=== PATIENT | male | born 1940 | race Caucasian/White ===

== ENCOUNTER → 2020-09-09 12:15 | Outpatient (BNVA) | payer MEDICARE, OTHER, SELFPAY | PROVIDERS: PCP Internal Medicine Interventional Cardiology; Referring Provider Internal Medicine Interventional Cardiology; Visit Provider Internal Medicine | DX: I25.10 Atherosclerotic heart disease of native coronary artery without angina pectoris (principal); I48.0 Paroxysmal atrial fibrillation; I10 Essential (primary) hypertension; E78.5 Hyperlipidemia, unspecified; Z95.1 Presence of aortocoronary bypass graft; Z95.3 Presence of xenogenic heart valve | CPT/HCPCS: 99214 ==

== ENCOUNTER → 2020-09-22 08:21 | Outpatient (REF) | payer MEDICARE, OTHER, SELFPAY ==
--- NOTE | 2020-09-22 08:28 | CA_ITS ---
Transthoracic Echocardiogram Patient (Last, First, Middle): Abrahan Odonnell, Gender: Male Date of : 1940 Age: 79 Procedure Date: 09/22/2020 Procedure Type: Transthoracic Echocardiogram Location: OP Height: 177.8 cm Weight: 90.72 kg BSA: 2.09 m2 Heart Rate: bpm BP: 124 / 60 mmHg Circulating Nurse: Referring MD: Jase Hopkins MD Symptoms: Z95.3 - Presence of xenogenic heart valve Study Quality: Fair ECG Rhythm: Sinus Conclusions: - The left ventricular systolic function is normal. The visually estimated ejection fraction is between 60-65%. - The prosthetic aortic valve appears to be functioning normally. - There is moderate mitral annular calcification. There is mild mitral valve regurgitation. Findings Left Ventricle Normal left ventricular cavity size. There is mildly increased left ventricular wall thickness. The left ventricular systolic function is normal. The visually estimated ejection fraction is between 60-65%. There is no evidence of regional wall motion abnormalities. E/E prime ratio is >15, consistent with elevated filling pressures. Evidence suggests grade II (moderate) diastolic dysfunction. Right Ventricle The right ventricle was not well visualized. Normal right ventricular cavity size. Atria The left atrium is normal in size. The right atrium is normal in size. Aortic Valve The prosthetic aortic valve appears to be functioning normally. The aortic valve was not well visualized. There is no aortic valve regurgitation. Mitral Valve There is moderate mitral annular calcification. There is mild mitral valve regurgitation. There is no mitral valve stenosis. Pulmonic Valve The pulmonic valve was not well visualized. Tricuspid Valve Normal tricuspid valve structure. There is mild tricuspid valve regurgitation. The pulmonary artery systolic pressure is normal. Great Vessels The aortic annulus, sinuses of valsalva, and asc aorta are normal in size. Venous The inferior vena cava is normal in size and collapses greater than 50% with inspiration. Pericardium/Pleural There is no evidence of pericardial effusion. Prior Study Comparison Changes noted compared to prior study dated: 06/16/2020. s/p AVR Measurements 2D Linear Measurements IVSd: 1.28 0.6-0.9/0.6-1.0 cm LVIDd: 4.20 3.9-5.3/4.2-5.9 cm LVIDd Index: 2.01 2.4-3.2/2.2-3.1 cm/m2 LVIDs: 2.88 2.0-3.6 cm LVPWd: 1.21 0.7-1.1 cm Ao Root: 2.70 2.1-3.5 cm LA Diam: 5.00 2.7-3.8/3.0-4.0 cm LAIDs Index: 2.39 1.5-2.3 cm/m2 LV Mass: 234.34 67-162/88-224 g LV Mass Index: 112.13 43-95/49-115 g/m2 LVOT Diam: 2.00 3.0+(-)1.3 cm Mitral Valve MV VTI: 0.42 MV Pk Bennett: 1.15 MV Mn Bennett: 0.56 MV Pk Grad: 5.00 MV Mn Grad: 2.00 MV Pk E: 1.31 MV PK A: 1.09 MV Decel Time: 208.00 E/A: 1.20 E'Lateral: 8.80 E'Medial: 4.06 E/E' Med: 32.30 E/E' Lat: 14.90 PHT: 61.00 MVA PHT: 3.61 MVA Continuity: 1.92 Decel [place]: 6.33 Aortic Valve AoV Pk Bennett: 2.40 AoV Mn Bennett: 1.60 AoV VTI: 0.54 AoV Pk Grad: 23.00 Aov Mn Grad: 12.00 TOMMY Cont.VTI: 1.47 LVOT LVOT Pk Bennett: 1.03 LVOT Mn Bennett: 0.71 LVOT VTI: 0.26 LVOT Pk Grad: 4.00 LVOT Mn Grad: 2.00 LVOT Diam: 2.00 LVOT Area: 3.14 Diastolic Function MV Pk E: 1.31 MV Pk A: 1.09 E/A: 1.20 E'Medial: 4.06 E/E' Med: 32.30 E' Laterial: 8.80 E/E' Lat: 14.90 Tricuspid Valve TR Pk Bennett: 2.51 TR Pk Grad: 25.00 Great Vessels Aorta Ao Root-2D: 2.70 2.0-3.7 cm Ao Asc: 3.50 2.1-3.4 cm Pulmonary Valve PV Pk Bennett: 0.95 Peak PV Grad: 4.00 Updated in Other Vendor System with Status of Final Jase Hopkins MD electronically signed on 09/23/2020 8:46:26 AM with status of Final
--- NOTE | 2020-09-22 08:28 | ECG_ITS ---
Hook-up date: 2020-09-22 09:30:00 Duration: 29:09:00 Test Indications: PAF Medications: 47031 QRS complexes 223 Ventricular ectopics which represent <1 % of total QRS comp. 32 Supraventricular ectopics which represent <1 % of total QRS comp. * Paced QRS complexs which represent % of total QRS comp. VENTRICULAR ECTOPY 217 Isolated 0 Bigeminal Cycles 5 Couplets 0 Runs 0 Beats in Runs * Beats LONGEST at * BPM at :: -- * Beats FASTEST at * BPM at :: -- SUPRAVENTRICULAR ECTOPY 30 Isolated 1 Couplets 0 Runs 0 Beats in Runs * Beats LONGEST at * BPM at :: -- * Beats FASTEST at * BPM at :: -- HEART RATES 47 MIN at 03:21:05 2020-09-23 68 AVG 113 MAX at 07:09:57 2020-09-23 LONGEST RR 1.3040 secs at 03:41:00 2020-09-23 S-T LEVELS Channel 1 - 128 mm at 09:30:00 2020-09-22 - 128 mm at 09:30:00 2020-09-22 Channel 2 - 128 mm at 09:30:00 2020-09-22 - 128 mm at 09:30:00 2020-09-22 Channel 3 - 128 mm at 09:30:00 2020-09-22 - 128 mm at 09:30:00 Underlying rhythm is sinus; Average ventricular rate 68/min; range 47-113/min; Rare supraventricular and ventricular ectopy; No sustained arrhythmias; Patient did not report any symptoms in the diary Referred By: Flako Lang Overread By: FLAKO LANG
== END ==
LOC: HO.CARD 08:21
PROVIDERS: Visit Provider Internal Medicine
DX: Z95.3 Presence of xenogenic heart valve (principal); I48.0 Paroxysmal atrial fibrillation
CPT/HCPCS: 93225; 93226; 93306

== ENCOUNTER → 2020-11-09 08:12 | Outpatient (BNVA) | payer MEDICARE, OTHER, SELFPAY | PROVIDERS: PCP Internal Medicine Interventional Cardiology; Visit Provider Internal Medicine | DX: I25.10 Atherosclerotic heart disease of native coronary artery without angina pectoris (principal); I48.0 Paroxysmal atrial fibrillation; I10 Essential (primary) hypertension; E78.5 Hyperlipidemia, unspecified; Z95.1 Presence of aortocoronary bypass graft; Z95.3 Presence of xenogenic heart valve | CPT/HCPCS: 99212 ==

== ENCOUNTER → 2021-01-25 08:48 | Outpatient (BNVA) | payer MEDICARE, OTHER, SELFPAY | PROVIDERS: PCP Internal Medicine Interventional Cardiology; Visit Provider Internal Medicine ==

== ENCOUNTER → 2021-01-25 10:38 | Outpatient (REF) | payer MEDICARE, OTHER, SELFPAY ==
--- NOTE | 2021-01-27 10:59 | ECG_ITS ---
Hook-up date: 2021-01-25 10:04:00 Duration: 47:59:00 Test Indications: PAF Medications: 06108 QRS complexes 12 Ventricular ectopics which represent <1 % of total QRS comp. 4 Supraventricular ectopics which represent <1 % of total QRS comp. * Paced QRS complexs which represent % of total QRS comp. VENTRICULAR ECTOPY 12 Isolated 0 Bigeminal Cycles 0 Couplets 0 Runs 0 Beats in Runs * Beats LONGEST at * BPM at :: -- * Beats FASTEST at * BPM at :: -- SUPRAVENTRICULAR ECTOPY 2 Isolated 1 Couplets 0 Runs 0 Beats in Runs * Beats LONGEST at * BPM at :: -- * Beats FASTEST at * BPM at :: -- HEART RATES 46 MIN at 05:10:30 2021-01-26 69 AVG 119 MAX at 10:09:17 2021-01-25 LONGEST RR 1.3840 secs at 05:09:27 2021-01-26 S-T LEVELS Channel 1 - 128 mm at 10:04:00 2021-01-25 - 128 mm at 10:04:00 2021-01-25 Channel 2 - 128 mm at 10:04:00 2021-01-25 - 128 mm at 10:04:00 2021-01-25 Channel 3 - 128 mm at 02:92:31 -- - 128 mm at 02:92:31 Basic rhythm Normal sinus rhythm No long pause or profound bradycardia Rare Premature ventricular complexes No sustained Atrial fibrillation No diary submitted Referred By: Jase Hopkins Overread By: BONIFACIO WYLIE MD
== END ==
LOC: HO.CARD 10:38
PROVIDERS: Visit Provider Internal Medicine
DX: I48.0 Paroxysmal atrial fibrillation (principal); I49.3 Ventricular premature depolarization
CPT/HCPCS: 93226

== ENCOUNTER → 2021-04-06 08:05 | Outpatient (BNVA) | payer MEDICARE, OTHER, SELFPAY | PROVIDERS: PCP Internal Medicine Interventional Cardiology; Visit Provider Internal Medicine | DX: I25.10 Atherosclerotic heart disease of native coronary artery without angina pectoris (principal); I48.0 Paroxysmal atrial fibrillation; I10 Essential (primary) hypertension; Z95.1 Presence of aortocoronary bypass graft; Z95.3 Presence of xenogenic heart valve | CPT/HCPCS: 99212 ==

== ENCOUNTER → 2021-06-30 13:42 | Outpatient (BNVA) | payer MEDICARE, OTHER, SELFPAY | PROVIDERS: PCP Internal Medicine Interventional Cardiology; Visit Provider Internal Medicine | DX: Z01.810 Encounter for preprocedural cardiovascular examination (principal); I25.10 Atherosclerotic heart disease of native coronary artery without angina pectoris; I48.0 Paroxysmal atrial fibrillation; I10 Essential (primary) hypertension; Z95.1 Presence of aortocoronary bypass graft; Z95.3 Presence of xenogenic heart valve | CPT/HCPCS: 93005; 99212 ==

== ENCOUNTER 2021-10-06 06:29 | Outpatient (REF) | payer MEDICARE, OTHER, SELFPAY ==
[2021-10-06 08:26] LABS: Cholesterol 186 mg/dL; HDL Cholesterol 57 mg/dL; LDL Cholesterol Calculated 112 mg/dl; Triglycerides 89 mg/dL
== END 2021-10-06 06:30 | disposition home or self-care (01) ==
LOC: HO.LAB 06:29
PROVIDERS: PCP Internal Medicine Interventional Cardiology; Visit Provider Internal Medicine
DX: I25.10 Atherosclerotic heart disease of native coronary artery without angina pectoris (principal)
CPT/HCPCS: 36415; 80061

== ENCOUNTER → 2021-10-13 08:05 | Outpatient (BNVA) | payer MEDICARE, OTHER, SELFPAY | PROVIDERS: PCP Nurse Practitioner Family; Referring Provider Nurse Practitioner Family; Visit Provider Internal Medicine | DX: I25.10 Atherosclerotic heart disease of native coronary artery without angina pectoris (principal); I48.0 Paroxysmal atrial fibrillation; I10 Essential (primary) hypertension; Z95.1 Presence of aortocoronary bypass graft; Z95.3 Presence of xenogenic heart valve | CPT/HCPCS: 99212 ==

== ENCOUNTER 2021-10-25 06:35 | Outpatient (REF) | payer MEDICARE, OTHER, SELFPAY ==
[2021-10-25 12:13] LABS: Cholesterol 162 mg/dL; HDL Cholesterol 40 mg/dL; LDL Cholesterol Calculated 87 mg/dl; Triglycerides 176 mg/dL
[2021-10-25 12:23] LABS: Alanine Aminotransferase 26 U/L (0-40); Albumin Level 4.3 g/dL (3.5-5.0); Alkaline Phosphatase 82 U/L (39-117); Anion Gap 18 (12-20); Aspartate Amino Transferase 42 U/L (5-37); Bilirubin Direct 0.3 mg/dL (0.0-0.5); Bilirubin Total 0.6 mg/dL (0.0-1.0); Blood Urea Nitrogen 24 mg/dL (9-16); Calcium 9.3 mg/dL (8.4-10.2); Carbon Dioxide 23 mmol/L (22-29); Chloride 105 mmol/L (96-108); Cholesterol 167 mg/dL; Estimated Glomerular Filt Rate > 60; Glucose Fasting 91 mg/dL (60-99); HDL Cholesterol 41 mg/dL; LDL Cholesterol Calculated 91 mg/dl; Potassium 4.9 mmol/L (3.3-5.1); Sodium 141 mmol/L (135-145); Total Protein 7.1 g/dL (6.5-8.0); Triglycerides 176 mg/dL
[2021-10-25 12:25] LABS: Prostate Specific Antigen Scr 1.19 ng/mL (<0.05-4.0); TSH reflex Free T4 1.49 uIU/mL (0.32-4.0)
== END 2021-10-25 06:36 | disposition home or self-care (01) ==
LOC: HO.HMGCLDS 06:35
PROVIDERS: Absent Provider Internal Medicine; PCP Nurse Practitioner Family; Visit Provider Nurse Practitioner Family
DX: Z12.5 Encounter for screening for malignant neoplasm of prostate (principal); F41.9 Anxiety disorder, unspecified; I10 Essential (primary) hypertension; E78.5 Hyperlipidemia, unspecified
CPT/HCPCS: 36415; 80053; 80061; 80076; 82248; 84153; 84443

== ENCOUNTER 2021-10-26 06:23 | Outpatient (REF) | payer MEDICARE, OTHER, SELFPAY ==
[2021-10-26 11:47] LABS: Appearance Urine HAZY; Color Urine YELLOW; Glucose Urine UA NEG (NEG); Leukocyte Esterase Urine 1+ (NEG); Nitrite Urine POS (NEG); UACC Culture Trigger YES; Urine Blood NEG (NEG); Urine Ketones NEG (NEG); Urine Protein NEG (NEG-TRACE)
[2021-10-26 12:28] LABS: Bacteria Urine 1+ /LPF
[2021-10-26 12:29] LABS: Mucus Urine TRACE /LPF; RBC Urine 0 /HPF (0); Squamous Epithelial Cell Urine TRACE /LPF
== END 2021-10-26 06:24 | disposition home or self-care (01) ==
LOC: HO.HMGCLNP 06:23
PROVIDERS: Visit Provider Nurse Practitioner Family
DX: I10 Essential (primary) hypertension (principal); F41.9 Anxiety disorder, unspecified
CPT/HCPCS: 81001; 81003; 87086; 87088; 87186

== ENCOUNTER → 2022-04-21 08:59 | Outpatient (BNVA) | payer MEDICARE, OTHER, SELFPAY | PROVIDERS: PCP Nurse Practitioner Family; Referring Provider Nurse Practitioner Family; Visit Provider Internal Medicine | DX: I25.10 Atherosclerotic heart disease of native coronary artery without angina pectoris (principal); I48.0 Paroxysmal atrial fibrillation; I10 Essential (primary) hypertension; Z95.1 Presence of aortocoronary bypass graft; Z95.3 Presence of xenogenic heart valve; Z79.899 Other long term (current) drug therapy | CPT/HCPCS: 93005; 99212 ==

== ENCOUNTER 2022-05-24 06:01 | Outpatient (REF) | payer MEDICARE, OTHER, SELFPAY ==
[2022-05-24 11:42] LABS: MANUAL DIFF FLAG NO
[2022-05-24 12:02] LABS: Basophils Percent Auto 0.6 % (0-2); Eosinophils Absolute Auto 0.1 X10*3/uL (0.0-0.4); Eosinophils Percent Auto 0.9 % (0-4); Hematocrit 35.8 % (42.0-52.0); Hemoglobin 12.1 g/dl (14.0-18.0); Imm Gran Abs Auto 0.02 X10*3/uL (0.00-0.03); Imm Gran Pct Auto 0.4 % (0.0-0.4); Lymphocytes Absolute Auto 1.7 X10*3/uL (1.2-4.9); Lymphocytes Percent Auto 32.3 % (20-40); Mean Corpuscular HGB Conc 33.8 g/dl (31.0-36.0); Mean Corpuscular Hemoglobin 33.9 pg (27.0-33.0); Mean Corpuscular Volume 100.3 fL (80.0-98.0); Mean Platelet Volume 10.6 fL (9.4-12.4); Monocytes Absolute Auto 0.6 X10*3/uL (0.1-1.2); Monocytes Percent Auto 10.5 % (2-11); Neutrophils Percent Auto 55.3 % (45-73); Platelet Count 195 X10*3/uL (160-400); Red Blood Count 3.57 X10*6/uL (4.60-5.80); Red Cell Distribution Width 13.9 % (11.0-16.0); White Blood Count 5.3 X10*3/uL (4.8-10.8)
[2022-05-24 12:08] LABS: Appearance Urine CLEAR; Color Urine YELLOW; Glucose Urine UA NEG (NEG); Leukocyte Esterase Urine NEG (NEG); Nitrite Urine NEG (NEG); Urine Blood NEG (NEG); Urine Ketones NEG (NEG); Urine Protein TRACE MG/DL (NEG-TRACE)
[2022-05-24 12:16] LABS: Alanine Aminotransferase 26 U/L (0-40); Albumin Level 4.5 g/dL (3.5-5.0); Alkaline Phosphatase 77 U/L (39-117); Anion Gap 14 (12-20); Aspartate Amino Transferase 36 U/L (5-37); Bilirubin Total 0.9 mg/dL (0.0-1.0); Blood Urea Nitrogen 25 mg/dL (9-16); Calcium 8.8 mg/dL (8.4-10.2); Carbon Dioxide 21 mmol/L (22-29); Chloride 108 mmol/L (96-108); Cholesterol 158 mg/dL; Estimated Glomerular Filt Rate > 60; Glucose Fasting 115 mg/dL (60-99); HDL Cholesterol 46 mg/dL; Iron 102 mcg/dL (45-160); LDL Cholesterol Calculated 96 mg/dl; Percent Iron Saturation 30 % (15-50); Potassium 4.6 mmol/L (3.3-5.1); Sodium 138 mmol/L (135-145); Total Iron Binding Capacity 342 mcg/dL (228-428); Triglycerides 82 mg/dL; Unsaturated Iron Binding 240 ug/dL
[2022-05-24 12:26] LABS: Ferritin 206 ng/mL (20-250); TSH reflex Free T4 1.97 uIU/mL (0.32-4.0)
[2022-05-24 12:50] LABS: Vitamin B12 212 pg/mL (200-900)
== END 2022-05-24 06:02 | disposition home or self-care (01) ==
LOC: HO.HMGCLDS 06:01
PROVIDERS: Visit Provider Nurse Practitioner Family
DX: I10 Essential (primary) hypertension (principal); G25.81 Restless legs syndrome
CPT/HCPCS: 36415; 80053; 80061; 81003; 82607; 82728; 83540; 84443; 85025

== ENCOUNTER → 2022-10-12 08:02 | Outpatient (BNVA) | payer MEDICARE, OTHER, SELFPAY | PROVIDERS: PCP Nurse Practitioner Family; Referring Provider Nurse Practitioner Family; Visit Provider Internal Medicine | DX: I25.10 Atherosclerotic heart disease of native coronary artery without angina pectoris (principal); I48.0 Paroxysmal atrial fibrillation; I10 Essential (primary) hypertension; Z95.1 Presence of aortocoronary bypass graft; Z95.3 Presence of xenogenic heart valve | CPT/HCPCS: 93005; 99212 ==

== ENCOUNTER 2022-11-15 06:01 | Outpatient (REF) | payer MEDICARE, OTHER, SELFPAY ==
[2022-11-15 11:28] LABS: MANUAL DIFF FLAG NO
[2022-11-15 11:38] LABS: Basophils Percent Auto 0.3 % (0-2); Eosinophils Percent Auto 0.7 % (0-4); Hematocrit 36.9 % (42.0-52.0); Hemoglobin 12.4 g/dl (14.0-18.0); Imm Gran Abs Auto 0.01 X10*3/uL (0.00-0.03); Imm Gran Pct Auto 0.2 % (0.0-0.4); Lymphocytes Absolute Auto 1.8 X10*3/uL (1.2-4.9); Mean Corpuscular HGB Conc 33.6 g/dl (31.0-36.0); Mean Corpuscular Hemoglobin 32.7 pg (27.0-33.0); Mean Corpuscular Volume 97.4 fL (80.0-98.0); Mean Platelet Volume 10.7 fL (9.4-12.4); Monocytes Absolute Auto 0.6 X10*3/uL (0.1-1.2); Monocytes Percent Auto 9.3 % (2-11); Neutrophils Absolute Auto 3.6 x10*3/uL (2.0-8.3); Neutrophils Percent Auto 59.5 % (45-73); Platelet Count 185 X10*3/uL (160-400); Red Blood Count 3.79 X10*6/uL (4.60-5.80); Red Cell Distribution Width 14.5 % (11.0-16.0)
[2022-11-15 15:37] LABS: Folate 10.8 ng/mL (> or = 4.0); Vitamin B12 612 pg/mL (200-900)
[2022-11-19 00:04] LABS: Intrinsic Factor Antibodies Negative (Negative)
[2022-11-23 12:47] LABS: Parietal Cell Antibody <=20.0 Unit (<=20.0)
== END 2022-11-15 06:02 | disposition home or self-care (01) ==
LOC: HO.HMGCLDS 06:01
PROVIDERS: PCP Nurse Practitioner Family; Visit Provider Nurse Practitioner Family
DX: D64.9 Anemia, unspecified (principal)
CPT/HCPCS: 36415; 82607; 82746; 83516; 85025; 86340

== ENCOUNTER 2023-01-23 06:04 | Outpatient (REF) | payer MEDICARE, OTHER, SELFPAY ==
[2023-01-23 11:57] LABS: MANUAL DIFF FLAG NO
[2023-01-23 12:02] LABS: Appearance Urine Clear; Color Urine Yellow; Glucose Urine UA Negative (Negative); Leukocyte Esterase Urine Negative (Negative); Nitrite Urine Negative (Negative); Specific Gravity - Urine 1.015 (1.005-1.025); UMIC TRIGGER UACC YES; Urine Blood Negative (Negative); Urine Ketones Negative (Negative); Urine Protein 30 (1+) mg/dL (Neg-Trace)
[2023-01-23 12:08] LABS: Bacteria Urine None Seen (None Seen); Basophils Percent Auto 0.5 % (0-2); Eosinophils Absolute Auto 0.1 X10*3/uL (0.0-0.4); Eosinophils Percent Auto 0.9 % (0-4); Hematocrit 36.6 % (42.0-52.0); Hemoglobin 12.4 g/dl (14.0-18.0); Imm Gran Abs Auto 0.02 X10*3/uL (0.00-0.03); Imm Gran Pct Auto 0.3 % (0.0-0.4); Lymphocytes Absolute Auto 1.7 X10*3/uL (1.2-4.9); Lymphocytes Percent Auto 29.3 % (20-40); Mean Corpuscular HGB Conc 33.9 g/dl (31.0-36.0); Mean Corpuscular Hemoglobin 33.3 pg (27.0-33.0); Mean Corpuscular Volume 98.4 fL (80.0-98.0); Mean Platelet Volume 10.5 fL (9.4-12.4); Monocytes Absolute Auto 0.7 X10*3/uL (0.1-1.2); Monocytes Percent Auto 12.8 % (2-11); Neutrophils Absolute Auto 3.2 x10*3/uL (2.0-8.3); Neutrophils Percent Auto 56.2 % (45-73); Platelet Count 188 X10*3/uL (160-400); RBC Urine 0-2 /HPF (0-2); Red Blood Count 3.72 X10*6/uL (4.60-5.80); Red Cell Distribution Width 13.7 % (11.0-16.0); Squamous Epithelial Cell Urine 0-2 /HPF (0-2); WBC Urine 0-5 /HPF (0-5); White Blood Count 5.8 X10*3/uL (4.8-10.8)
[2023-01-23 12:38] LABS: Alanine Aminotransferase 33 U/L (0-40); Albumin Level 4.4 g/dL (3.5-5.0); Alkaline Phosphatase 77 U/L (39-117); Anion Gap 17 (12-20); Aspartate Amino Transferase 46 U/L (5-37); Bilirubin Total 0.6 mg/dL (0.0-1.0); Blood Urea Nitrogen 27 mg/dL (9-16); Carbon Dioxide 22 mmol/L (22-29); Chloride 106 mmol/L (96-108); Cholesterol 145 mg/dL; Estimated Glomerular Filt Rate > 60; Glucose Fasting 85 mg/dL (60-99); HDL Cholesterol 42 mg/dL; LDL Cholesterol Calculated 86 mg/dl; Potassium 4.7 mmol/L (3.3-5.1); Sodium 140 mmol/L (135-145); Triglycerides 89 mg/dL
[2023-01-23 12:56] LABS: Prostate Specific Antigen Scr 1.59 ng/mL (<0.05-4.0); TSH reflex Free T4 1.58 uIU/mL (0.32-4.0)
== END 2023-01-23 06:05 | disposition home or self-care (01) ==
LOC: HO.HMGCLDS 06:04
PROVIDERS: PCP Nurse Practitioner Family; Visit Provider Nurse Practitioner Family
DX: E78.5 Hyperlipidemia, unspecified (principal); D64.9 Anemia, unspecified; Z12.5 Encounter for screening for malignant neoplasm of prostate
CPT/HCPCS: 36415; 80053; 80061; 81001; 81003; 84153; 84443; 85025

== ENCOUNTER 2023-02-23 06:00 | Outpatient (REF) | payer MEDICARE, OTHER, SELFPAY ==
[2023-02-23 11:12] LABS: MANUAL DIFF FLAG NO
[2023-02-23 11:20] LABS: Basophils Percent Auto 0.4 % (0-2); Eosinophils Absolute Auto 0.1 X10*3/uL (0.0-0.4); Eosinophils Percent Auto 0.8 % (0-4); Hematocrit 38.6 % (42.0-52.0); Hemoglobin 12.8 g/dl (14.0-18.0); Imm Gran Abs Auto 0.02 X10*3/uL (0.00-0.03); Imm Gran Pct Auto 0.3 % (0.0-0.4); Immature Retic Fraction 14.8 % (2.3-13.4); Lymphocytes Absolute Auto 2.4 X10*3/uL (1.2-4.9); Lymphocytes Percent Auto 32.4 % (20-40); Mean Corpuscular HGB Conc 33.2 g/dl (31.0-36.0); Mean Corpuscular Hemoglobin 33.1 pg (27.0-33.0); Mean Corpuscular Volume 99.7 fL (80.0-98.0); Mean Platelet Volume 11.7 fL (9.4-12.4); Monocytes Absolute Auto 0.7 X10*3/uL (0.1-1.2); Monocytes Percent Auto 9.1 % (2-11); Neutrophils Absolute Auto 4.2 x10*3/uL (2.0-8.3); Platelet Count 186 X10*3/uL (160-400); Red Blood Count 3.87 X10*6/uL (4.60-5.80); Red Cell Distribution Width 13.5 % (11.0-16.0); Retic HGB Equivalent 35.4 pg (30.0-35.0); Reticulocyte Percent 1.2 % (0.5-1.8); Reticulocytes Absolute 0.048 X10*6/uL (0.026-0.095); White Blood Count 7.4 X10*3/uL (4.8-10.8)
[2023-02-23 12:00] LABS: Iron 59 mcg/dL (45-160); Percent Iron Saturation 20 % (15-50); Total Iron Binding Capacity 299 mcg/dL (228-428); Unsaturated Iron Binding 240 ug/dL
[2023-02-23 12:16] LABS: Ferritin 159 ng/mL (20-250); Folate 9.9 ng/mL (> or = 4.0); Vitamin B12 744 pg/mL (200-900)
== END 2023-02-23 06:01 | disposition home or self-care (01) ==
LOC: HO.HMGCLDS 06:00
PROVIDERS: PCP Nurse Practitioner Family; Visit Provider Nurse Practitioner Family
DX: D64.9 Anemia, unspecified (principal)
CPT/HCPCS: 36415; 82607; 82728; 82746; 83540; 85025; 85045

== ENCOUNTER 2023-03-03 | Outpatient (REF) | payer MEDICARE, OTHER, SELFPAY ==
[2023-03-07 07:39] LABS: FIT Int Ctl YES; FIT1 NEGATIVE (NEGATIVE); FIT2 POSITIVE (NEGATIVE)
== END 2023-03-03 00:01 | disposition home or self-care (01) ==
LOC: HO.LNP
PROVIDERS: Visit Provider Nurse Practitioner Family
DX: D64.9 Anemia, unspecified (principal)
CPT/HCPCS: 82274

== ENCOUNTER → 2023-05-03 09:13 | Outpatient (BNVA) | payer MEDICARE, OTHER, SELFPAY | PROVIDERS: PCP Nurse Practitioner Family; Visit Provider Nurse Practitioner ==

== ENCOUNTER → 2023-05-04 08:00 | Outpatient (BNVA) | payer MEDICARE, OTHER, SELFPAY | PROVIDERS: PCP Nurse Practitioner Family; Visit Provider Nurse Practitioner | DX: Z01.818 Encounter for other preprocedural examination (principal); D64.9 Anemia, unspecified; R19.5 Other fecal abnormalities | CPT/HCPCS: 99202 ==

== ENCOUNTER 2023-09-18 06:02 | Outpatient (REF) | payer MEDICARE, OTHER, SELFPAY ==
[2023-09-18 11:40] LABS: Appearance Urine Clear; Color Urine Yellow; Glucose Urine UA Negative (Negative); Leukocyte Esterase Urine Negative (Negative); Nitrite Urine Negative (Negative); PH 6.5 (5.0-9.0); Specific Gravity - Urine 1.015 (1.005-1.025); Urine Blood Negative (Negative); Urine Ketones Negative (Negative); Urine Protein Trace mg/dL (Neg-Trace)
[2023-09-18 11:44] LABS: MANUAL DIFF FLAG NO
[2023-09-18 12:15] LABS: Alanine Aminotransferase 25 U/L (0-40); Albumin Level 4.4 g/dL (3.5-5.0); Alkaline Phosphatase 66 U/L (39-117); Anion Gap 15 (12-20); Aspartate Amino Transferase 31 U/L (5-37); Bilirubin Total 0.8 mg/dL (0.0-1.0); Blood Urea Nitrogen 18 mg/dL (9-16); Calcium 9.6 mg/dL (8.4-10.2); Carbon Dioxide 23 mmol/L (22-29); Chloride 107 mmol/L (96-108); Cholesterol 133 mg/dL (<200); Estimated Glomerular Filt Rate > 60; Glucose Fasting 100 mg/dL (60-99); HDL Cholesterol 44 mg/dL (>40); Iron 96 mcg/dL (45-160); LDL Cholesterol Calculated 75 mg/dL (<100); Percent Iron Saturation 28 % (15-50); Potassium 4.5 mmol/L (3.3-5.1); Sodium 140 mmol/L (135-145); Total Iron Binding Capacity 337 mcg/dL (228-428); Total Protein 7.4 g/dL (6.5-8.0); Triglycerides 72 mg/dL (<150); Unsaturated Iron Binding 241 ug/dL
[2023-09-18 12:22] LABS: Ferritin 76 ng/mL (20-250)
[2023-09-18 12:23] LABS: Basophils Percent Auto 0.5 % (0-2); Eosinophils Absolute Auto 0.1 X10*3/uL (0.0-0.4); Eosinophils Percent Auto 0.8 % (0-4); Hematocrit 37.8 % (42.0-52.0); Hemoglobin 12.5 g/dl (14.0-18.0); Imm Gran Abs Auto 0.02 X10*3/uL (0.00-0.03); Imm Gran Pct Auto 0.3 % (0.0-0.4); Lymphocytes Absolute Auto 2.1 X10*3/uL (1.2-4.9); Lymphocytes Percent Auto 34.8 % (20-40); Mean Corpuscular HGB Conc 33.1 g/dl (31.0-36.0); Mean Corpuscular Hemoglobin 33.1 pg (27.0-33.0); Mean Platelet Volume 10.5 fL (9.4-12.4); Monocytes Absolute Auto 0.6 X10*3/uL (0.1-1.2); Monocytes Percent Auto 9.5 % (2-11); Neutrophils Absolute Auto 3.2 x10*3/uL (2.0-8.3); Neutrophils Percent Auto 54.1 % (45-73); Platelet Count 224 X10*3/uL (160-400); Red Blood Count 3.78 X10*6/uL (4.60-5.80); Red Cell Distribution Width 13.8 % (11.0-16.0)
[2023-09-18 12:42] LABS: Folate 12.8 ng/mL (> or = 4.0); Vitamin B12 509 pg/mL (200-900)
== END 2023-09-18 06:03 | disposition home or self-care (01) ==
LOC: HO.HMGCLDS 06:02
PROVIDERS: PCP Nurse Practitioner Family; Visit Provider Nurse Practitioner Family
DX: I10 Essential (primary) hypertension (principal); E78.5 Hyperlipidemia, unspecified; D64.9 Anemia, unspecified
CPT/HCPCS: 36415; 80053; 80061; 81003; 82607; 82728; 82746; 83540; 84443; 85025

== ENCOUNTER 2023-10-25 08:09 | Outpatient (AMB) | payer MEDICARE, OTHER, SELFPAY ==
--- NOTE | 2023-10-25 08:19 | A.OFFVIS_ITS ---
Intake Vital Signs 10/25/23 08:25 Height 5 ft 10 in Weight 216 lb 0.848 oz BMI 31.0 BP 136/86 Blood Pressure Location Lt brachial Position Sitting Pulse 67 Intake Visit Reasons: 1 year follow up Intake Note: 1 year follow up w/ EKG Supervisor Filling And Packing Required: No Accompanied by: Self / Same As Patient Allergies No Known Allergies Allergy (Verified 10/25/23 08:29) Medication List - Last Reconciled 10/25/23 by Jase Hopkins MD aspirin 81 mg PO DAILY atorvastatin 80 mg PO DAILY 90 days dorzolamide-timolol 22.3-6.8 mg/mL 1 drp ophthalmic (eye) BID lisinopril 10 mg PO DAILY metoprolol tartrate 50 mg PO BID 90 days HPI HPI Comments History of Present Illness Details Abrahan returns for follow-up. He has undergone coronary artery bypass surgery as well as bioprosthetic aortic valve replacement. Overall, he is doing good. No complaints from cardiac standpoint. [facility] Medical History Atherosclerotic cardiovascular disease Constipation Dyslipidemia Essential hypertension Hyperlipidemia, unspecified PAF (paroxysmal atrial fibrillation) Surgical History H/O colonoscopy Status post aortic valve replacement with bioprosthetic valve Status post aorto-coronary artery bypass graft History of coronary artery bypass graft x 2 (~07/29/20) History of cardiac catheterization (~07/03/20) Family History Father No problems noted. Mother No problems noted. [facility] Tobacco Use Status: Former Tobacco user Years Smoked: 1959 e-Cigarette/Vaping Use: Never Used Second Hand Smoke Exposure: No service: Yes Current occupational status: retired Cognitive needs: No Hearing needs: No Vision needs: Yes Review of Systems Const Denies weakness ENT Denies dizziness Card Denies chest pain, Denies chest pain with activity, Denies syncope, Denies rapid heart rate, Denies pedal edema, Denies edema, Denies leg edema, Denies lightheadedness, Denies palpitations, Denies dyspnea, Denies dyspnea on exertion and Denies orthopnea Resp Denies cough, Denies dyspnea and Denies dyspnea on exertion GI Denies hematochezia and Denies change in stool character Musc Denies abnormal gait, Denies muscle cramps, Denies muscle weakness, Denies numbness, Denies radiating pain into limb and Denies tingling Neuro Denies abnormal gait, Denies dizziness, Denies syncope, Denies numbness, Denies tingling and Denies weakness Endo Denies palpitations Physical Exam Vital Signs: Last Vital Signs Pulse 67 10/25/23 08:25 BP 136/86 10/25/23 08:25 BMI result Body Mass Index 31.0 Const General: comfortable and no acute distress Orientation/consciousness: patient oriented x3 HEENT Other: Unremarkable Head: Yes normal to inspection Neck Neck: Yes normal visual inspection Chest Chest palpation & inspection: normal inspection of the chest Resp Auscultation: clear to auscultation bilaterally Cardio Palpation: normal PMI Heart sounds: S1 normal heart sound present, S2 normal heart sound present, no gallops, Murmur heart sound present systolic early, I/ and at the right sternal border and no rubs GI Palpation (GI): Soft to palpation Back/Spine/Pelvis Other: unremarkable Skin General skin exam: no rashes or lesions noted Neuro General: patient oriented x3 Extrem General: Yes normal to inspection Psych Mental Status: mental status grossly normal Office Procedures EKG Details: EKG with sinus rhythm at 67/Min; no significant ST-T changes and otherwise [place]remarkable[place] [id number], Complete Assessment & Plan Assessment & Plan (1) Atherosclerotic cardiovascular disease: Code(s): I25.10 - Atherosclerotic heart disease of [place] coronary artery without angina pectoris Plan: Stable and angina free. Continue aspirin, beta-blockers and statins. (2) Status post aorto-coronary artery bypass graft: Code(s): Z95.1 - Presence of aortocoronary bypass graft Plan: Recovered completely. (3) Status post aortic valve replacement with bioprosthetic valve: Code(s): Z95.3 - Presence of xenogenic heart valve Plan: Last echocardiogram shows normally functioning prosthetic aortic valve. Continue aspirin. Infective endocarditis prophylaxis as needed. We will recheck echocardiogram before next visit. (4) PAF (paroxysmal atrial fibrillation): Code(s): I48.0 - Paroxysmal atrial fibrillation Plan: No evidence of recurrent atrial fibrillation. Off Eliquis. (5) Essential hypertension: Code(s): I10 - Essential (primary) hypertension Plan: Stable. Home blood pressures apparently much lower than here. No changes. Orders: Orders CA echo transthoracic complete 51 Weeks Z95.3 - Presence of xenogenic heart valve Coding Level of Care Code Est Pt Level 4 (36239) Diagnoses Atherosclerotic cardiovascular disease I25.10 Status post aorto-coronary artery bypass graft Z95.1 Status post aortic valve replacement with bioprosthetic valve Z95.3 PAF (paroxysmal atrial fibrillation) I48.0 Essential hypertension I10 CPT Codes EKG - CPT: 71519-[id number], Complete ([id number])
[2023-10-25 08:25] VITALS: BP 136/86; PULSE 67; BMI 31.0
== END 2023-10-25 08:38 | disposition home or self-care (01) ==
PROVIDERS: Visit Provider Internal Medicine
DX: I25.10 Atherosclerotic heart disease of native coronary artery without angina pectoris (principal); Z95.1 Presence of aortocoronary bypass graft; Z95.3 Presence of xenogenic heart valve; I48.0 Paroxysmal atrial fibrillation; I10 Essential (primary) hypertension
CPT/HCPCS: 93010; 99214

== ENCOUNTER → 2023-10-25 08:09 | Outpatient (BNVA) | payer MEDICARE, OTHER, SELFPAY | PROVIDERS: Visit Provider Internal Medicine | DX: I25.10 Atherosclerotic heart disease of native coronary artery without angina pectoris (principal); I10 Essential (primary) hypertension; I48.0 Paroxysmal atrial fibrillation; Z95.1 Presence of aortocoronary bypass graft; Z95.3 Presence of xenogenic heart valve | CPT/HCPCS: 93005; 99212 ==

== ENCOUNTER 2023-11-16 08:45 | Day surgery (SDC) | payer MEDICARE, OTHER, SELFPAY ==
[2023-11-14 13:03] VITALS: BMI 31.0
--- NOTE | 2023-11-15 09:45 | P.CONAN_ITS ---
Documented by User: Gudelia Feliz NP 11/15/23 09:56 HPI - Anesthesia Eval Consult details Narrative: 82yo M for Upper Endoscopy and Colonoscopy Follows [facility] cardiology. Last office visit 10/25/23, stable PAF - no recurrent episodes, off OAC except aspirin s/p AVR s/p CABG PMFSH Active Problems Active Problems: All Active Problems (Updated 05/10/23 @ 10:28 by PETER Feliz) Pre-op examination (Acute) Positive FIT (fecal immunochemical test) (Acute) Anemia (Acute) Restless leg (Acute) Screening PSA (prostate specific antigen) (Acute) Anxiety (Acute) Preoperative cardiovascular examination (Acute) PAF (paroxysmal atrial fibrillation) (Acute) Hyperlipidemia, unspecified (Acute) Essential hypertension (Acute) Status post aortic valve replacement with bioprosthetic valve (Acute) Status post aorto-coronary artery bypass graft (Acute) Atherosclerotic cardiovascular disease (Acute) Past Medical History Medical History Atherosclerotic cardiovascular disease Constipation Dyslipidemia Essential hypertension Hyperlipidemia, unspecified PAF (paroxysmal atrial fibrillation) Family History Family History Father No problems noted. Mother No problems noted. Surgical History Surgical History H/O colonoscopy Status post aortic valve replacement with bioprosthetic valve Status post aorto-coronary artery bypass graft History of coronary artery bypass graft x 2 (~07/29/20) History of cardiac catheterization (~07/03/20) Social History Social History Housing: Condominium Patient Tobacco Use Status: Former Tobacco user Years Smoked: 1959 e-Cigarette/Vaping Use: Never Used Second Hand Smoke Exposure: No Advance Directives: No Advance Directives Information Provided: Yes service: Yes Current occupational status: retired Cognitive needs: No Hearing needs: No Vision needs: Yes Meds Allergies Allergy/AdvReac Type Severity Reaction Status Date / Time No Known Allergies Allergy Verified 11/16/23 09:14 Home Medications Medication Instructions Recorded Confirmed Last Taken Type aspirin 81 mg tablet,delayed 81 mg PO DAILY 09/09/20 11/16/23 11/15/23 History release dorzolamide 22.3 mg-timolol 6.8 1 drp ophthalmic (eye) BID 09/09/20 11/16/23 Unknown History mg/mL eye drops Exam Height,Weight and Vital Signs: Height 5 ft 10 in Weight 97.976 kg Pertinent Lab Results Pertinent Lab Results: Laboratory Tests 09/18/23 06:17 WBC 6.0 Hgb 12.5 L Hct 37.8 L Plt Count 224 Sodium 140 Potassium 4.5 Chloride 107 Carbon Dioxide 23 BUN 18 H Creatinine 0.76 Narrative Narrative: ECHO 09/2023 Conclusions: - The left ventricular systolic function is normal. The visually estimated ejection fraction is between 60-65%. - The prosthetic aortic valve appears to be functioning normally. - There is moderate mitral annular calcification. There is mild mitral valve regurgitation. Assessment and Plan Assessment Anesthesia Assessment: Chart Reviewed Documented by User: Dustin Sorensen MD 11/16/23 09:23 [facility] Past Medical History Medical History Atherosclerotic cardiovascular disease Constipation Dyslipidemia Essential hypertension Hyperlipidemia, unspecified PAF (paroxysmal atrial fibrillation) Family History Family History Father No problems noted. Mother No problems noted. Family history of problems with anesthesia: No Surgical History Surgical History H/O colonoscopy Status post aortic valve replacement with bioprosthetic valve Status post aorto-coronary artery bypass graft History of coronary artery bypass graft x 2 (~07/29/20) History of cardiac catheterization (~07/03/20) History of Problems with Anesthesia: No Social History [facility] Tobacco Use Status: Former Tobacco user Years Smoked: 1960 e-Cigarette/Vaping Use: Never Used Second Hand Smoke Exposure: No Advance Directives: No Advance Directives Information Provided: Yes service: Yes Current occupational status: retired Cognitive needs: No Hearing needs: No Vision needs: Yes Meds Allergies Allergy/AdvReac Type Severity Reaction Status Date / Time No Known Allergies Allergy Verified 11/16/23 09:14 Home Medications Medication Instructions Recorded Confirmed Last Taken Type aspirin 81 mg tablet,delayed 81 mg PO DAILY 09/09/20 11/16/23 11/15/23 History release dorzolamide 22.3 mg-timolol 6.8 1 drp ophthalmic (eye) BID 09/09/20 11/16/23 Unknown History mg/mL eye drops Exam Airway Mallampati Class: II TM Dist: <=3cm (with 'bucked' teeth) Neck ROM: Full Loose/Missing/Broken Teeth: No Heart: ok Lungs: ok Assessment and Plan Assessment Anesthesia Assessment: Anesthesia Plan Discussed Final Anesthetic Review Family History of Problems with Anesthesia: No History of Problems with Anesthesia: No NPO: Yes Final Preanesthetic Review: No Changes in Pt Med Stat, Meds/Allgs Chart Reviewed, Consent Obtained/Reviewed and Anes Risks/Benef Reviewed Patient Risk: Intermediate Procedure Risk: Intermediate Anesthetic Plan Anesthetic Plan: Agree w/ Assess. and Plan and TIVA Disposition: Standard PACU
[2023-11-16 08:57] VITALS: BMI 31.0
--- NOTE | 2023-11-16 09:24 | MHC.SHP ---
Pre-Procedural Eval Section A Date of Service: 11/16/23 Section B Chief Complaint: Other fecal abnormalities,anemia, Relevant Family History (Specify if Yes): No Relevant Social History: None Present Medications: see Short Stay Collaborative assessment Medical History: Significant History (oxysmal atrial fibrilElation-NO ANTICOAGULATION Hypertension High cholesterol Coronary artery disease Anxiety Restless legs syndrome Positive fit test) History of Previous Operations: Relevant previous surgery/procedure and date(s) (SURGICAL HISTORY Cardiac catheterization CABG x2 Aortic valve replaceme) Allergies: Allergies Allergy/AdvReac Type Severity Reaction Status Date / Time No Known Allergies Allergy Verified 11/16/23 09:14 Review of Systems Sugical H&P ROS: Negative: Constitution, Cardiovascular, Respiratory, Neurological, Psychiatric, Hem-Onc, Allergic/Immunologic, Gastrointestinal, Genitourinary, Musculoskeletal, Integumentary, Endocrine and Eyes/Ears/Nose/Throat Exam Surgical H&P Exam: Normal: HEENT, Normal: Heart, Normal: Lungs, Normal: Extremities, Normal: Abdomen, Normal: Skin and Normal: Neurological Plan Diagnosis/Plan: Unchanged I have reviewed the history and physical and performed a pertinent physical examination on my patient. No changes have occurred unless specified. Time Spent With Patient Time: Total time managing care of this patient today ____ minutes.
--- NOTE | 2023-11-16 09:40 | W.PM.OPN ---
Operative Note Operative Note Date of Service: 11/16/23 Narrative: Operative Information Procedure Description: EGD, Colonoscopy Indication: anemia, pos stool card Anesthesia: MAC FLEXIBLE TRANSORAL UPPER GASTROINTESTINAL ENDOSCOPY AND COLONOSCOPY PROCEDURE NOTE UPPER ENDOSCOPY Consent: Indications for the procedure and potential complications of bleeding, perforation, reaction to medications and missed diagnosis were discussed with the patient and informed consent was obtained. Instrument: Olympus GIF H 190 J mid size upper endoscope Monitoring: Vital signs and clinical assessment, continuous EKG monitoring, Pulse oximetry, Carbon Dioxide monitoring and blood pressure monitoring were done throughout the procedure. Procedure: The patient was placed in the left lateral decubitis position and pre-procedure medications were administered and a bite block was placed. The endoscope was inserted into the mouth and advanced under direct vision to the third part of duodenum. A careful inspection was made as the upper endoscope was withdrawn including a retroflexed examination of the proximal stomach; Findings and interventions are described below. 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 Biopsies were obtained. Grade 2 flap valve on retroflexed examination of the cardia. Duodenum: Normal bulb and descending duodenum, bx taken Intervention: Biopsies as noted above COLONOSCOPY Instrument: Olympus variable stiffness pediatric scope 190L Colonoscopy Monitoring: Vital signs and clinical assessment, continuous EKG monitoring, Pulse oximetry, Carbon Dioxide monitoring and blood pressure monitoring were done throughout the procedure. Colon withdrawal time was 10 minutes. Procedure: The patient was placed in the left lateral decubitis position and pre-procedure medications were administered. After a digital rectal examination of the ano-rectum, the video colonoscope was inserted into the rectum and advanced through the colon to the cecum/TI. The colonoscope was slowly withdrawn in a retrograde panoramic fashion and the colon mucosa was carefully examined including a retroflexed view of the rectum. Findings and interventions are described below. Procedure Difficulty:moderate, pressure applied Findings: Terminal Ileum-not intubated due to looping Cecum:normal Ascending Colon: 8-9 mm sessile polyp removed with cold snare Transverse Colon -normal Descending Colon:normal Sigmoid Colon:moderate diverticulosis Rectum: Retroflexion with small to medium sized internal hemorrhoids, grade I Anorectum - normal Colon preparation: [place] Bowel Preparation Scale Right colon; 2 Transverse colon: 3 Left colon; 2 (0 = Unprepared colon segment with mucosa not seen due to solid stool that cannot be cleared. 1 = Portion of mucosa of the colon segment seen, but other areas of the colon segment not well seen due to staining, residual stool and/or opaque liquid. 2 = Minor amount of residual staining, small fragments of stool and/or opaque liquid, but mucosa of colon segment seen well. 3 = Entire mucosa of colon segment seen well with no residual staining, small fragments of stool or opaque liquid) Impression and Post Procedure Diagnosis: Endoscopy Findings: possible barretts gastritis Colonoscopy Findings: polyp internal hemorrhoids diverticular disease Plan: Await Pathology results Repeat Colonoscopy as needed -given age no further screening would be recommended High fiber diet leaflet avoid straining at stool, epsom salts and sitz bath, anusol supps or cream no obvious cause for anemia, but rectal bleeding in past was probably from hemorrhoids Above findings were reviewed with the patient and relevant handouts were provided if indicated.
[2023-11-16 10:09] VITALS: BP 109/47; PULSE 52; RESP 18; TEMP 36.2; O2SAT 96
[2023-11-16 10:24] VITALS: BP 130/60; PULSE 58; RESP 16; TEMP 36.6; O2SAT 98
== END 2023-11-16 10:55 | disposition home or self-care (01) ==
PROVIDERS: PCP Nurse Practitioner Family; Visit Provider Internal Medicine Gastroenterology
PROC: (CPT 45385; principal; 2023-11-16 11:30)
DX: R19.5 Other fecal abnormalities (principal); D12.2 Benign neoplasm of ascending colon; K57.30 Diverticulosis of large intestine without perforation or abscess without bleeding; K64.0 First degree hemorrhoids; D64.9 Anemia, unspecified; K29.50 Unspecified chronic gastritis without bleeding; B96.81 Helicobacter pylori [H. pylori] as the cause of diseases classified elsewhere; K44.9 Diaphragmatic hernia without obstruction or gangrene; I25.10 Atherosclerotic heart disease of native coronary artery without angina pectoris; Z95.1 Presence of aortocoronary bypass graft; Z87.891 Personal history of nicotine dependence; I10 Essential (primary) hypertension; I48.0 Paroxysmal atrial fibrillation; E78.00 Pure hypercholesterolemia, unspecified; F41.9 Anxiety disorder, unspecified; Z95.2 Presence of prosthetic heart valve; Z79.82 Long term (current) use of aspirin; Z79.899 Other long term (current) drug therapy
CPT/HCPCS: 45385; 43239; 88305; 88342; J2704; J3010

== ENCOUNTER → 2023-11-16 08:45 | Outpatient (BNV) | payer MEDICARE, OTHER, SELFPAY | PROVIDERS: PCP Nurse Practitioner Family; Visit Provider Internal Medicine Gastroenterology | DX: D64.9 Anemia, unspecified (principal); R19.5 Other fecal abnormalities; D12.2 Benign neoplasm of ascending colon; K57.30 Diverticulosis of large intestine without perforation or abscess without bleeding; K64.0 First degree hemorrhoids; K29.70 Gastritis, unspecified, without bleeding | CPT/HCPCS: 43239; 45385 ==

== ENCOUNTER 2023-11-28 08:19 | Outpatient (AMB) | payer MEDICARE, OTHER, SELFPAY ==
--- NOTE | 2023-11-28 08:27 | MHC.OFFVIS ---
Intake Vital Signs 11/28/23 08:39 Height 5 ft 10 in Weight 217 lb BMI 31.1 BP 143/66 H Blood Pressure Location Lt brachial Position Sitting Pulse 50 Intake Visit Reasons: S/p egd/colon Intake Note: Abrahan presents in office today in follow up of colonoscopy and EGD. CC: Patient reports doing well and denies having any GI concerns today. He underwent EGD and Colonoscopy on 11/16/[address] Coley[address] [employer] Services Required: No Accompanied by: Self / Same As Patient Allergies No Known Allergies Allergy (Verified 11/28/23 08:43) HPI S/p egd/colon HPI Details Assessment & Plan (1) Pre-op examination: Code(s): Z01.818 - Encounter for other preprocedural examination Plan: He has not sx except some CIC r/t prostate but does not bother him. Educated about anemia - does not eat much red meat. Fish, chicken etc and beets. His afib is well controlled and he is not on anticoagulation; he denies respiratory problems. There are no prior problems with anesthesia or sedation. There are no infectious disease problems. There is no known family history of colon cancer or polyps and his last colonoscopy was in [address] Addison here and was negative. ROV after EGD/colonoscopy. (2) Positive FIT (fecal immunochemical test): Code(s): R19.5 - Other fecal abnormalities (3) Anemia: Code(s): D64.9 - Anemia, unspecified Medications: New peg 3350-electroly pranav 236-22.74-6.74 -5.86 gram (Golyt kristine) until feca l effluent is hua r; do not exceed a total volume of 2 ,000 mL 240 mL PO Q10M 1 day 4,000 mL 0RF Z12.11 - Encounter for screening for malignant neoplas m of colon EGD/COLONOSCOPY Assessment & Plan (1) Pre-op examination: Code(s): Z01.818 - Encounter for other preprocedural examination Plan: He has not sx except some CIC r/t prostate but does not bother him. Educated about anemia - does not eat much red meat. Fish, chicken etc and beets. His afib is well controlled and he is not on anticoagulation; he denies respiratory problems. There are no prior problems with anesthesia or sedation. There are no infectious disease problems. There is no known family history of colon cancer or polyps and his last colonoscopy was in [address] Addison here and was negative. ROV after EGD/colonoscopy. (2) Positive FIT (fecal immunochemical test): Code(s): R19.5 - Other fecal abnormalities (3) Anemia: Code(s): D64.9 - Anemia, unspecified Medications: New peg 3350-electroly pranav 236-22.74-6.74 -5.86 gram (Golyt kristine) until feca l effluent is hua r; do not exceed a total volume of 2 ,000 mL 240 mL PO Q10M 1 day 4,000 mL 0RF Z12.11 - Encounter for screening for malignant neoplas m of colon COLONOSCOPY/EGD 11/16/23 Findings: Larynx:normal Esophagus: GE junction at 37 cm, diaphragm hiatus at 37 cm, possible short segment barretts with irregular z line, bx taken Stomach: Patchy erythema. Biopsies were obtained. Grade 2 flap valve on retroflexed examination of the cardia. Duodenum: Normal bulb and descending duodenum, bx taken Findings: Terminal Ileum-not intubated due to looping Cecum:normal Ascending Colon: 8-9 mm sessile polyp removed with cold snare Transverse Colon -normal Descending Colon:normal Sigmoid Colon:moderate diverticulosis Rectum: Retroflexion with small to medium sized internal hemorrhoids, grade I Anorectum - normal Colon preparation: Impression and Post Procedure Diagnosis: Endoscopy Findings: possible barretts gastritis Colonoscopy Findings: polyp internal hemorrhoids diverticular disease Plan: Await Pathology results Repeat Colonoscopy as needed -given age no further screening would be recommended High fiber diet leaflet avoid straining at stool, epsom salts and sitz bath, anusol supps or cream no obvious cause for anemia, but rectal bleeding in past was probably from hemorrhoids BIOPSY Received: 11/16/23 Diagnosis A. Duodenum, biopsy: Duodenal mucosa with predominantly preserved villi and no specific change. B. Stomach, biopsy: Chronic Helicobacter gastritis with moderate activity; negative for intestinal metaplasia and dysplasia. C. Gastroesophageal junction, biopsy: Squamocolumnar mucosa with mild chronic active inflammation; negative for intestinal metaplasia and dysplasia. D. Colon, ascending, polyp: Tubular adenoma; negative for high-grade dysplasia and carcinoma TODAY'S VISI The colonoscopy needs to be repeated in 5 years due the tubular adenoma. The procedure was well tolerated. The results were explained and the patient is agreeable to the follow-up interval as stated. The bowel pattern has returned to normal. Education was provided to tell any 1st degree relatives about their findings to be sure that they are screened by age 45. Educated that they will be put on a recall list when it is time for their repeat scope but should they move out of state or away from the hospital they will need to remember along with their primary to repeat the procedure in a timely fashion to avoid any adverse complications. The Barretts esophagus seems to have resolved. However the patient was unaware that he had a chronic H pylori infection. I educate him about this infection and that it can cause stomach ulcers and stomach cancer. This is likely the source of his anemia through slow GI losses from gastric irritation. This also is probably because the Barretts esophagus. I educate him that he should be taking a probiotic supplement and I want him to take 1 antibiotic for 2 weeks and then immediately begin the next one. He also was told that if he has any trouble completing the course he needs to contact our office since this can be a difficult infection to eradicating and there are high degrees of antibiotic resistance. He was also made aware that there can be no alcohol consumed with the Flagyl do that disulfiram reaction. He also was made aware that the bismuth tablets will turn his stool black and this is harmless. Return office visit in 8 weeks. At that time will do an H pylori breath test to see if we can confirm eradication. [facility] Medical History Barretts esophagus Dyslipidemia Constipation PAF (paroxysmal atrial fibrillation) Hyperlipidemia, unspecified Essential hypertension Atherosclerotic cardiovascular disease Surgical History H/O colonoscopy Status post aortic valve replacement with bioprosthetic valve Status post aorto-coronary artery bypass graft History of coronary artery bypass graft x 2 (~07/29/20) History of cardiac catheterization (~07/03/20) Family History Father No problems noted. Mother No problems noted. Social History Housing: [facility] Patient Tobacco Use Status: Former Tobacco user Quit Date: >50 yrs ago Years Smoked: 1959 e-Cigarette/Vaping Use: Never Used Second Hand Smoke Exposure: No service: Yes Current occupational status: retired Cognitive needs: No Hearing needs: No Vision needs: Yes Review of Systems Const Denies fatigue, Denies fever(s), Denies night sweats, Denies poor appetite and Denies weight loss ENT Reports Normal hearing present, Denies dysphagia, Denies odynophagia, Denies throat swelling and Denies tongue swelling Card Reports no additional complaints Resp Reports no additional complaints GI Denies abdominal pain, Denies melena, Denies bloating, Denies hematochezia, Denies constipation, Denies GI cramping, Denies dysphagia, Denies excessive flatus, Denies early satiety, Denies heartburn, Denies diarrhea, Denies nausea, Denies odynophagia, Denies vomiting and Denies hematemesis Skin/Breast Denies pruritus, Denies lesions, Denies rash and Denies jaundice Neuro Reports Normal hearing present and Denies Abnormal speech present Endo Denies fatigue Aller/Immun Denies throat swelling and Denies tongue swelling Physical Exam Vital Signs: Last Vital Signs Pulse 50 11/28/23 08:39 BP 143/66 H 11/28/23 08:39 BMI result Body Mass Index 31.1 Const General: cooperative, no acute distress, well developed and well groomed Nutritional Appearance: well nourished and obese Orientation/consciousness: oriented to person, oriented to place and oriented to time Limitations: No language barrier HEENT Head: Yes normocephalic and Yes atraumatic Eyes General: appearance normal, both eyes and all related structures Pupils: Equal, round and reactive pupils present Neck Neck: Yes normal visual inspection and Yes no lymphadenopathy Thyroid: Thyroid normal Resp Effort & Inspection: normal respiratory effort and able to speak in complete sentences Auscultation: clear to auscultation bilaterally Cardio Rate: regular rate Rhythm: regular rhythm Heart sounds: Normal, physiologic split S2 sound present Peripheral pulses: radial pulses present and posterior tibial pulses present GI Inspection: No distended, No Abdominal panniculus present and Yes obesity Palpation (GI): Soft to palpation, nontender, no guarding, not rigid and No hepatosplenomegaly present Percussion: Yes normal to percussion Auscultation: normal bowel sounds Rectal Exam - Male: Yes deferred Skin General skin exam: no rashes or lesions noted, turgor normal, skin not dry, no jaundice, No spider nevi and no striae Rashes: no rashes Nails: normal Neuro General: oriented to person, oriented to place and oriented to time Cranial nerves: Yes Equal, round and reactive pupils present and Yes Normal hearing present Speech: No Abnormal speech present Extrem General: Yes normal to inspection, No clubbing, No cyanosis and No edema Psych Appearance: grossly normal and well kempt Mental Status: mental status grossly normal Speech and movement: Normal speech and movement present Affect: normal affect Attitude: cooperative Thought process: Normal thought process present and not confabulating Thought content: Normal thought content present Insight: Limited insight present (Psych) Judgement: Limited judgement present (Psych) Results Reviewed Results Reviewed: COLONOSCOPY/EGD 11/16/23 Findings: Larynx:normal Esophagus: GE junction at 37 cm, diaphragm hiatus at 37 cm, possible short segment barretts with irregular z line, bx taken Stomach: Patchy erythema. Biopsies were obtained. Grade 2 flap valve on retroflexed examination of the cardia. Duodenum: Normal bulb and descending duodenum, bx taken Findings: Terminal Ileum-not intubated due to looping Cecum:normal Ascending Colon: 8-9 mm sessile polyp removed with cold snare Transverse Colon -normal Descending Colon:normal Sigmoid Colon:moderate diverticulosis Rectum: Retroflexion with small to medium sized internal hemorrhoids, grade I Anorectum - normal Colon preparation: Impression and Post Procedure Diagnosis: Endoscopy Findings: possible barretts gastritis Colonoscopy Findings: polyp internal hemorrhoids diverticular disease Plan: Await Pathology results Repeat Colonoscopy as needed -given age no further screening would be recommended High fiber diet leaflet avoid straining at stool, epsom salts and sitz bath, anusol supps or cream no obvious cause for anemia, but rectal bleeding in past was probably from hemorrhoids BIOPSY Received: 11/16/23 Diagnosis A. Duodenum, biopsy: Duodenal mucosa with predominantly preserved villi and no specific change. B. Stomach, biopsy: Chronic Helicobacter gastritis with moderate activity; negative for intestinal metaplasia and dysplasia. C. Gastroesophageal junction, biopsy: Squamocolumnar mucosa with mild chronic active inflammation; negative for intestinal metaplasia and dysplasia. D. Colon, ascending, polyp: Tubular adenoma; negative for high-grade dysplasia and carcinom Assessment & Plan Assessment & Plan (1) Tubular adenoma of colon: Comment: 1 TA 10/2023 scope repeat in 5 years Code(s): D12.6 - Benign neoplasm of colon, unspecified (2) H. pylori duodenitis: Code(s): K29.80 - Duodenitis without bleeding; B96.81 - Helicobacter pylori [H. pylori] as the cause of diseases classified elsewhere (3) Barretts esophagus: Comment: Negative biopsy for Raymond's 10/2023 EGD Code(s): K22.70 - Raymond's esophagus without dysplasia Plan The colonoscopy needs to be repeated in 5 years due the tubular adenoma. The procedure was well tolerated. The results were explained and the patient is agreeable to the follow-up interval as stated. The bowel pattern has returned to normal. Education was provided to tell any 1st degree relatives about their findings to be sure that they are screened by age 45. Educated that they will be put on a recall list when it is time for their repeat scope but should they move out of state or away from the hospital they will need to remember along with their primary to repeat the procedure in a timely fashion to avoid any adverse complications. The Barretts esophagus seems to have resolved. However the patient was unaware that he had a chronic H pylori infection. I educate him about this infection and that it can cause stomach ulcers and stomach cancer. This is likely the source of his anemia through slow GI losses from gastric irritation. This also is probably because the Barretts esophagus. I educate him that he should be taking a probiotic supplement and I want him to take 1 antibiotic for 2 weeks and then immediately begin the next one. He also was told that if he has any trouble completing the course he needs to contact our office since this can be a difficult infection to eradicating and there are high degrees of antibiotic resistance. He was also made aware that there can be no alcohol consumed with the Flagyl do that disulfiram reaction. He also was made aware that the bismuth tablets will turn his stool black and this is harmless. Return office visit in 8 weeks. At that time will do an H pylori breath test to see if we can confirm eradication. Medications: New doxycycline hyclate 100 mg PO BID 14 days 28 tabs 0RF B96.81 - Helicobacter pylori [H. pylori] as the cause of diseases classified elsewhere, K29.80 - Duodenitis without bleeding metronidazole 1,000 mg (2 x 500 mg) PO BID 14 days 56 tabs 0RF bismuth subsalicylate (Bismuth) 2 tabs PO QID 28 days 224 tabs 0RF B96.81 - Helicobacter pylori [H. pylori] as the cause of diseases classified elsewhere, K29.80 - Duodenitis without bleeding omeprazole 20 mg PO BID 28 days 56 caps 0RF B96.81 - Helicobacter pylori [H. pylori] as the cause of diseases classified elsewhere, K29.80 - Duodenitis without bleeding Coding Level of Care Code Est Pt Level 4 (77389) Diagnoses Tubular adenoma of colon D12.6 H. pylori duodenitis K29.80; B96.81 Barretts esophagus K22.70
[2023-11-28 08:39] VITALS: BP 143/66; PULSE 50; BMI 31.1
== END 2023-11-28 09:03 | disposition home or self-care (01) ==
PROVIDERS: PCP Nurse Practitioner Family; Visit Provider Nurse Practitioner
DX: D12.6 Benign neoplasm of colon, unspecified (principal); K29.80 Duodenitis without bleeding; B96.81 Helicobacter pylori [H. pylori] as the cause of diseases classified elsewhere; K22.70 Barrett's esophagus without dysplasia
CPT/HCPCS: 99214

== ENCOUNTER → 2023-11-28 08:19 | Outpatient (BNVA) | payer MEDICARE, OTHER, SELFPAY | PROVIDERS: PCP Nurse Practitioner Family; Visit Provider Nurse Practitioner | DX: K57.30 Diverticulosis of large intestine without perforation or abscess without bleeding (principal); D12.2 Benign neoplasm of ascending colon; K64.0 First degree hemorrhoids; K29.80 Duodenitis without bleeding; B96.81 Helicobacter pylori [H. pylori] as the cause of diseases classified elsewhere; Z98.890 Other specified postprocedural states | CPT/HCPCS: 99212 ==

== ENCOUNTER 2023-12-04 08:59 | Outpatient (AMB) | payer MEDICARE, OTHER, SELFPAY ==
--- NOTE | 2023-12-04 09:00 | MHC.PC.OV ---
Vital Signs 12/04/23 09:04 Height 51 ft Weight 218 lb BMI 0.4 BP 120/68 Blood Pressure Location Rt brachial Position Sitting Pulse 58 Pulse Source Pulse Oximeter Pulse Oximetry (%) 97 Oxygen Delivery Method Room Air Intake Visit Reasons: Annual PE/GIC covers Intake Note: Patient here for physical exam. Allergies No Known Allergies Allergy (Verified 12/04/23 09:38) Medication List - Last Reconciled 12/04/23 by NELY Chew aspirin 81 mg PO DAILY atorvastatin 80 mg PO DAILY 90 days bismuth subsalicylate (Bismuth) 2 tabs PO QID 28 days dorzolamide-timolol 22.3-6.8 mg/mL 1 drp ophthalmic (eye) BID lisinopril 10 mg PO DAILY metoprolol tartrate 50 mg PO BID 90 days omeprazole 20 mg PO BID 28 days Tobacco use date assessed: 12/04/23 Fall risk assessment: No Falls in past year Last assessed Fall Risk: 12/04/23 Dental Screening Dental Screen Date: 12/04/23 Did you have a dental visit in the last 12 months?: Yes Did you have a dental problem in the last 6 months where you did not have access to dental care?: No Was dental information given to patient?: Patient has dentist HPI Annual PE/GIC covers HPI Details Pt is here for a PE. Will order labs. Pt does not need further colon screens. PSA is up to date. Denies dribbling with urination, weak stream, and frequent nocturia. 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 [facility] Medical History Barretts esophagus Dyslipidemia Constipation PAF (paroxysmal atrial fibrillation) Hyperlipidemia, unspecified Essential hypertension Atherosclerotic cardiovascular disease Surgical History H/O colonoscopy Status post aortic valve replacement with bioprosthetic valve Status post aorto-coronary artery bypass graft History of coronary artery bypass graft x 2 (~07/29/20) History of cardiac catheterization (~07/03/20) Family History Father No problems noted. Mother No problems noted. Social History Housing: Condominium Patient Tobacco Use Status: Former Tobacco user Quit Date: >50 yrs ago Years Smoked: 1959 e-Cigarette/Vaping Use: Never Used Second Hand Smoke Exposure: No service: Yes Current occupational status: retired Cognitive needs: No Hearing needs: No Vision needs: Yes Questionnaire PHQ-9 Over the last 2 weeks, how often have you been bothered by any of the following problems? 1. Little interest or pleasure in doing things: not at all 2. Feeling down, depressed, or hopeless: not at all 3. Trouble falling or staying asleep, or sleeping too much: not at all 4. Feeling tired or having little energy: not at all 5. Poor appetite or overeating: not at all 6. Feeling bad about yourself - or that you are a failure or have let yourself or your family down: not at all 7. Trouble concentrating on things, such as reading the newspaper or watching television: not at all 8. Moving or speaking so slowly that other people could have noticed. Or the opposite - being so fidgety or restless that you have been moving around a lot more than usual: not at all 9. Thoughts that you would be better off or of hurting yourself in some way: not at all Total score: 0 Depression Screening Interpretation: Negative Depression Screening Done: Yes 81272 - PHQ-9 Billing: Yes Source: Developed by Drs. Peter Tariq, Indira Ibarra, Francisco Corona and colleagues, with an educational smith from [employer]. Thrive Questionnaire Date Thrive assessed: 12/04/23 I am a: Patient What is your living situation today?: I have a steady place to live Within the past 12 months, did the food you bought not last and you didn't have the money to get more?: Never true Within the past 12 months, did you worry whether your food would run out before you got money to buy more?: Never true Do you have trouble paying for medicines?: No Do you have trouble getting transportation to medical appointments?: No Do you have trouble paying your heating and electricity bill?: No Do you have trouble taking care of your child, family member or friend?: No Do you have trouble with day-to-day activities such as bathing, preparing meals, shopping, managing finances, etc.?: No Are you currently unemployed and looking for a job?: No Are you interested in more education?: No AUDIT C Alcohol Use Questionnaire (AUDIT-C) 1. How often do you have a drink containing alcohol?: Never 3. How often do you have six or more drinks on one occasion?: Never Total Score: 0 Score Reviewed/Action Taken: No DAVID-7 AMB Questionnaire DAVID-7 Date DAVID - 7 assessed: 12/04/23 Feeling nervous, anxious, or on edge: 0 = Not at all Not being able to stop or control worryin = Not at all Worrying too much about different things: 0 = Not at all Trouble relaxin = Not at all Being so restless that it is hard to sit still: 0 = Not at all Becoming easily annoyed or irritable: 0 = Not at all Feeling afraid as if something awful might happen: 0 = Not at all Total DAVID-7 score (0-4 normal; 5-9 mild; 10-14 moderate; 15-21 severe): 0 Source: Developed by Drs. Peter Tariq, Indira Ibarra, Francisco Corona and colleagues, with an educational smith from [employer]. DAVID-7 Assessment Billing DAVID-7 Assessment Tool: DAVID-7 Assessment 71622 Review of Systems Const Denies chills and Denies fever(s) Eyes Denies blurry vision ENT Denies vertigo, Denies dizziness and Denies sore throat Card Denies chest pain at rest, Denies chest pain with activity, Denies diaphoresis, Denies dyspnea and Denies dyspnea on exertion Resp Denies cough, Denies dyspnea, Denies dyspnea on exertion and Denies wheezing GI Denies abdominal pain, Denies melena, Denies hematochezia, Denies constipation, Denies diarrhea and Denies loose stools Denies hematuria Musc Denies numbness and Denies tingling Skin/Breast Denies lesions Neuro Denies vertigo, Denies dizziness, Denies numbness and Denies tingling Psych Denies anxiety, Denies depression, Denies homicidal ideation, Denies suicidal ideation and Denies other (substance abuse) Aller/Immun Denies wheezing Physical exam (Primary Care) Vital Signs: Last Vital Signs Pulse 58 12/04/23 09:04 BP 120/68 12/04/23 09:04 Pulse Ox 97 12/04/23 09:04 Oxygen Delivery Method Room Air 12/04/23 09:04 BMI result Body Mass Index 0.4 Tobacco/Smoking Status: Tobacco use Status Tobacco use date assessed 12/04/23 12/04/23 09:08 Patient Tobacco Use Status Former Tobacco user 12/04/23 09:00 e-Cigarette/Vaping Use Never Used 12/04/23 09:00 Depression Screening Interpretation: Negative Thrive Assessment: Date of Thrive Assessment Date Thrive assessed 02/15/22 12/04/23 09:00 Const General: cooperative Nutritional Appearance: obese Orientation/consciousness: patient oriented x3 HENMT Head: Yes normal to inspection, Yes normocephalic and Yes atraumatic Ears: TM's normal bilaterally Eyes General: appearance normal, both eyes and all related structures Alignment and Position: alignment normal and position normal Neck Neck: Yes normal visual inspection and Yes no lymphadenopathy Thyroid: Thyroid normal Resp Effort & Inspection: normal respiratory effort Auscultation: clear to auscultation bilaterally Cardio Rate: regular rate Rhythm: regular rhythm Heart sounds: S1 normal heart sound present, S2 normal heart sound present and Murmur heart sound present systolic GI Palpation (GI): Soft to palpation and nontender Auscultation: normal bowel sounds Male General Exam: Yes normal external exam Penis: normal penis Scrotum: scrotum normal, testes descended bilaterally and no inguinal hernias Testes: no testicular mass Skin Rashes: no rashes Neuro General: patient oriented x3, moves all extremities, no focal motor deficits and deep tendon reflexes 2+ bilaterally Romberg Test: Negative Psych Appearance: grossly normal Mental Status: mental status grossly normal Speech and movement: Normal speech and movement present Affect: normal affect Attitude: cooperative Thought process: Normal thought process present Thought content: Normal thought content present Insight: Good insight present (Psych) Judgement: Good judgement present (Psych) Assessment and Plan Assessment & Plan (1) Physical exam: Code(s): Z00.00 - Encounter for general adult medical examination without abnormal findings Plan: Labs ordered Plan The patient agreed to the use of a medical management trainer for this encounter. Scribed for NELY Jose by Angelica Lam, medical management trainer, on 12/04/2023 at 09:15 EST. Orders: Orders Comprehensive [place]. Panel Fast Today Z00.00 - Encounter for general adult medical examination without abnormal findings Prostate Specific Antigen Scr Today Z00.00 - Encounter for general adult medical examination without abnormal findings Vitamin D 25-OH Total Today Z00.00 - Encounter for general adult medical examination without abnormal findings Complete Blood Count Auto Diff Today Z00.00 - Encounter for general adult medical examination without abnormal findings TSH reflex Free T4 Today Z00.00 - Encounter for general adult medical examination without abnormal findings UA CC w/rflx Micro + Cult Today Z00.00 - Encounter for general adult medical examination without abnormal findings Lipid Panel Today Z00.00 - Encounter for general adult medical examination without abnormal findings Coding Level of Care Code Est Pt Prev Care >65y(10327) Diagnoses Physical exam Z00.00 Additional Codes DAVID-7 Assessment Billing - DAVID-7 Assessment Tool: DAVID-7 Assessment 38015 ([id number])
[2023-12-04 09:04] VITALS: BP 120/68; PULSE 58; O2SAT 97
== END 2023-12-04 11:13 | disposition home or self-care (01) ==
PROVIDERS: PCP Nurse Practitioner Family; Visit Provider Nurse Practitioner Family
DX: Z00.00 Encounter for general adult medical examination without abnormal findings (principal)
CPT/HCPCS: 99397

== ENCOUNTER 2024-01-08 06:01 | Outpatient (REF) | payer MEDICARE, OTHER, SELFPAY ==
[2024-01-08 11:44] LABS: Appearance Urine Clear; Color Urine Yellow; Glucose Urine UA Negative (Negative); Leukocyte Esterase Urine Negative (Negative); Nitrite Urine Negative (Negative); PH 5.5 (5.0-9.0); Urine Blood Negative (Negative); Urine Ketones Negative (Negative); Urine Protein Trace mg/dL (Neg-Trace)
[2024-01-08 11:48] LABS: MANUAL DIFF FLAG NO
[2024-01-08 12:31] LABS: Basophils Percent Auto 0.3 % (0-2); Eosinophils Absolute Auto 0.1 X10*3/uL (0.0-0.4); Eosinophils Percent Auto 0.8 % (0-4); Hematocrit 39.3 % (42.0-52.0); Hemoglobin 12.8 g/dl (14.0-18.0); Imm Gran Abs Auto 0.01 X10*3/uL (0.00-0.03); Imm Gran Pct Auto 0.2 % (0.0-0.4); Lymphocytes Absolute Auto 2.6 X10*3/uL (1.2-4.9); Lymphocytes Percent Auto 41.7 % (20-40); Mean Corpuscular HGB Conc 32.6 g/dl (31.0-36.0); Mean Corpuscular Hemoglobin 32.2 pg (27.0-33.0); Mean Corpuscular Volume 98.7 fL (80.0-98.0); Mean Platelet Volume 11.5 fL (9.4-12.4); Monocytes Absolute Auto 0.6 X10*3/uL (0.1-1.2); Monocytes Percent Auto 9.9 % (2-11); Neutrophils Absolute Auto 2.9 x10*3/uL (2.0-8.3); Neutrophils Percent Auto 47.1 % (45-73); Platelet Count 165 X10*3/uL (160-400); Red Blood Count 3.98 X10*6/uL (4.60-5.80); Red Cell Distribution Width 13.4 % (11.0-16.0); White Blood Count 6.2 X10*3/uL (4.8-10.8)
[2024-01-08 12:41] LABS: Prostate Specific Antigen Scr 1.44 ng/mL (<0.05-4.0)
[2024-01-08 12:44] LABS: Alanine Aminotransferase 37 U/L (0-40); Albumin Level 4.2 g/dL (3.5-5.0); Alkaline Phosphatase 76 U/L (39-117); Anion Gap 12 (12-20); Aspartate Amino Transferase 33 U/L (5-37); Bilirubin Total 0.7 mg/dL (0.0-1.0); Blood Urea Nitrogen 27 mg/dL (9-16); Calcium 9.6 mg/dL (8.4-10.2); Carbon Dioxide 23 mmol/L (22-29); Chloride 111 mmol/L (96-108); Cholesterol 119 mg/dL (<200); Estimated Glomerular Filt Rate > 60; Glucose Fasting 109 mg/dL (60-99); HDL Cholesterol 32 mg/dL (>40); LDL Cholesterol Calculated 70 mg/dL (<100); Potassium 4.8 mmol/L (3.3-5.1); Sodium 141 mmol/L (135-145); Total Protein 7.2 g/dL (6.5-8.0); Triglycerides 87 mg/dL (<150)
[2024-01-08 13:03] LABS: Vitamin D 25-OH Total 37.8 ng/mL (>30)
== END 2024-01-08 06:02 | disposition home or self-care (01) ==
LOC: HO.HMGCLDS 06:01
PROVIDERS: PCP Nurse Practitioner Family; Visit Provider Nurse Practitioner Family
DX: Z00.00 Encounter for general adult medical examination without abnormal findings (principal); Z12.5 Encounter for screening for malignant neoplasm of prostate
CPT/HCPCS: 36415; 80053; 80061; 81003; 82306; 84153; 84443; 85025

== ENCOUNTER 2024-01-10 07:58 | Outpatient (AMB) | payer MEDICARE, OTHER, SELFPAY ==
--- NOTE | 2024-01-10 08:03 | A.OFFVIS_ITS ---
Intake Vital Signs 01/10/24 08:10 Height 5 ft 10 in Weight 206 lb BMI 29.6 BP 126/57 L Blood Pressure Location Lt brachial Position Sitting Pulse 46 L Intake Visit Reasons: 6 week follow up Intake Note: Patient 6 weeks follow up for Barretts esophagus Patient denies any GI issues. 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 pylori duodenitis: Code(s): K29.80 - Duodenitis without bleeding; B96.81 - Helicobacter pylori [H. pylori] as the cause of diseases classified elsewhere (3) Barretts esophagus: Comment: Negative biopsy for Raymond's 10/2023 EGD Code(s): K22.70 - Raymond's esophagus without dysplasia Plan The colonoscopy needs to be repeated in 5 years due the tubular adenoma. The procedure was well tolerated. The results were explained and the patient is agreeable to the follow-up interval as stated. The bowel pattern has returned to normal. Education was provided to tell any 1st degree relatives about their findings to be sure that they are screened by age 45. Educated that they will be put on a recall list when it is time for their repeat scope but should they move out of state or away from the hospital they will need to remember along with their primary to repeat the procedure in a timely fashion to avoid any adverse complications. The Barretts esophagus seems to have resolved. However the patient was unaware that he had a chronic H pylori infection. I educate him about this infection and that it can cause stomach ulcers and stomach cancer. This is likely the source of his anemia through slow GI losses from gastric irritation. This also is probably because the Barretts esophagus. I educate him that he should be taking a probiotic supplement and I want him to take 1 antibiotic for 2 weeks and then immediately begin the next one. He also was told that if he has any trouble completing the course he needs to contact our office since this can be a difficult infection to eradicating and there are high degrees of antibiotic resistance. He was also made aware that there can be no alcohol consumed with the Flagyl do that disulfiram reaction. He also was made aware that the bismuth tablets will turn his stool black and this is harmless. Return office visit in 8 weeks. At that time will do an H pylori breath test to see if we can confirm eradication. Medications: New doxycycline hyclat e 100 mg PO BID 14 days 28 tabs 0RF B96.81 - Helicobac ter pylori [H. pyl marilee] as the cause of diseases classi fied elsewhere, K2 9.80 - Duodenitis without bleeding metronidazole 1,000 mg (2 x 500 mg) PO BID 14 days 56 tabs 0RF bismuth subsalicyl ate (Bismuth) 2 tabs PO QID 28 days 224 tabs 0RF B96.81 - Helicobac ter pylori [H. pyl marilee] as the cause of diseases classi fied elsewhere, K2 9.80 - Duodenitis without bleeding omeprazole 20 mg PO BID 28 d ays 56 caps 0RF B96.81 - Helicobac ter pylori [H. pyl marilee] as the cause of diseases classi fied elsewhere, K2 9.80 - Duodenitis without bleeding TODAY'S VISIT. He tolerated the antibiotics extremely well. I only gave him 2 weeks of omeprazole because I want him to be off of acid reducing medication so that we can do an H pylori breath test to confirm eradication. He had no side effects at all from the antibiotics and he feels well without heartburn or dyspepsia. Return office visit in 3 weeks to go over results of the H pylori breath test. If it comes back positive I will call him and reschedule this out further and we will treat him again. However, he is not positive about re treatment saying I won't do it again, its too many pills! [facility] Medical History (Updated 01/10/24 @ 08:04 by PETER Feliz) Physical exam Pre-op examination Screening PSA (prostate specific antigen) Preoperative cardiovascular examination Barretts esophagus Dyslipidemia Constipation PAF (paroxysmal atrial fibrillation) Hyperlipidemia, unspecified Essential hypertension Atherosclerotic cardiovascular disease Surgical History H/O colonoscopy Status post aortic valve replacement with bioprosthetic valve Status post aorto-coronary artery bypass graft History of coronary artery bypass graft x 2 (~07/29/20) History of cardiac catheterization (~07/03/20) Family History Father No problems noted. Mother No problems noted. Social History Housing: Condominium Patient Tobacco Use Status: Former Tobacco user Quit Date: >50 yrs ago Years Smoked: 1959 e-Cigarette/Vaping Use: Never Used Second Hand Smoke Exposure: No service: Yes Current occupational status: retired Cognitive needs: No Hearing needs: No Vision needs: Yes Review of Systems Const Denies fatigue, Denies fever(s), Denies night sweats, Denies poor appetite and Denies weight loss ENT Reports Normal hearing present, Denies dental pain, Denies dysphagia, Denies hearing loss, Denies mouth pain, Denies odynophagia, Denies throat swelling, Denies tongue swelling and Reports other (Dentition adequate) Card Reports no additional complaints Resp Reports no additional complaints GI Details: Denies abdominal pain, Denies melena, Denies bloating, Denies hematochezia, Denies constipation, Denies GI cramping, Denies dysphagia, Denies excessive flatus, Denies early satiety, Denies heartburn, Denies diarrhea, Denies nausea, Denies odynophagia, Denies vomiting and Denies hematemesis Skin/Breast Denies pruritus, Denies lesions, Denies rash and Denies jaundice Neuro Reports Normal hearing present and Denies Abnormal speech present Endo Denies fatigue Aller/Immun Denies throat swelling and Denies tongue swelling Physical Exam Vital Signs: Last Vital Signs Pulse 46 L 01/10/24 08:10 BP 126/57 L 01/10/24 08:10 BMI result Body Mass Index 29.6 Const General: cooperative, no acute distress, well developed and well groomed Nutritional Appearance: well nourished and obese Orientation/consciousness: oriented to person, oriented to place and oriented to time Limitations: No language barrier HEENT Head: Yes normocephalic and Yes atraumatic Eyes General: appearance normal, both eyes and all related structures Pupils: Equal, round and reactive pupils present Neck Neck: Yes normal visual inspection and Yes no lymphadenopathy Thyroid: Thyroid normal Resp Effort & Inspection: normal respiratory effort and able to speak in complete sentences Auscultation: clear to auscultation bilaterally Cardio Rate: regular rate Rhythm: regular rhythm Heart sounds: Normal, physiologic split S2 sound present Peripheral pulses: radial pulses present and posterior tibial pulses present GI Inspection: No distended, No Abdominal panniculus present and Yes obesity Palpation (GI): Soft to palpation, nontender, no guarding, not rigid and No hepatosplenomegaly present Percussion: Yes normal to percussion Auscultation: normal bowel sounds Rectal Exam - Male: Yes deferred Skin General skin exam: no rashes or lesions noted, turgor normal, skin not dry, no jaundice, No spider nevi and no striae Rashes: no rashes Nails: normal Neuro General: oriented to person, oriented to place and oriented to time Cranial nerves: Yes Equal, round and reactive pupils present and Yes Normal hearing present Speech: No Abnormal speech present Extrem General: Yes normal to inspection, No clubbing, No cyanosis and No edema Psych Appearance: grossly normal and well kempt Mental Status: mental status grossly normal Speech and movement: Slowed speech present (Psych) Affect: Irritable affect present Attitude: Guarded attititude/behavior present Thought process: not confabulating and Impoverished thought process present Thought content: Normal thought content present Insight: Limited insight present (Psych) Judgement: Limited judgement present (Psych) Assessment & Plan Assessment & Plan (1) H. pylori duodenitis: Code(s): K29.80 - Duodenitis without bleeding; B96.81 - Helicobacter pylori [H. pylori] as the cause of diseases classified elsewhere (2) Barretts esophagus: Comment: Negative biopsy for Raymond's 10/2023 EGD Code(s): K22.70 - Raymond's esophagus without dysplasia Plan He tolerated the antibiotics extremely well. I only gave him 2 weeks of omeprazole because I want him to be off of acid reducing medication so that we can do an H pylori breath test to confirm eradication. He had no side effects at all from the antibiotics and he feels well without heartburn or dyspepsia. Return office visit in 3 weeks to go over results of the H pylori breath test. If it comes back positive I will call him and reschedule this out further and we will treat him again. However, he is not positive about re treatment saying I won't do it again, its too many pills! Orders: Orders H Pylori Breath Test Today Coding Level of Care Code Est Pt Level 3 (64196) Diagnoses H. pylori duodenitis K29.80; B96.81 Barretts esophagus K22.70
[2024-01-10 08:10] VITALS: BP 126/57; PULSE 46; BMI 29.6
== END 2024-01-10 09:04 | disposition home or self-care (01) ==
PROVIDERS: PCP Nurse Practitioner Family; Visit Provider Nurse Practitioner
DX: K29.80 Duodenitis without bleeding (principal); B96.81 Helicobacter pylori [H. pylori] as the cause of diseases classified elsewhere; K22.70 Barrett's esophagus without dysplasia
CPT/HCPCS: 99213

== ENCOUNTER → 2024-01-10 07:58 | Outpatient (BNVA) | payer MEDICARE, OTHER, SELFPAY | PROVIDERS: PCP Nurse Practitioner Family; Visit Provider Nurse Practitioner | DX: K29.80 Duodenitis without bleeding (principal); K22.70 Barrett's esophagus without dysplasia; B96.81 Helicobacter pylori [H. pylori] as the cause of diseases classified elsewhere | CPT/HCPCS: 83013; 99212 ==

== ENCOUNTER 2024-01-10 14:17 | Outpatient (REF) | payer MEDICARE, OTHER, SELFPAY ==
[2024-01-12 10:36] LABS: H Pylori Breath Test Negative (Negative)
== END 2024-01-10 14:18 | disposition home or self-care (01) ==
LOC: HO.LNP 14:17
PROVIDERS: Visit Provider Nurse Practitioner
DX: Z13.89 Encounter for screening for other disorder (principal)
CPT/HCPCS: 83013

== ENCOUNTER 2024-06-03 08:45 | Outpatient (AMB) | payer MEDICARE, OTHER, SELFPAY ==
[2024-06-03 08:47] VITALS: BP 144/68; PULSE 60; O2SAT 95
--- NOTE | 2024-06-03 08:47 | A.OFFPC_ITS ---
Vital Signs 06/03/24 08:47 06/03/24 09:12 Height 5 ft 10 in Weight 209 lb 2 oz BMI 30.0 BP 144/68 H 138/66 Blood Pressure Location Rt brachial Lt brachial Position Sitting Sitting Pulse 60 Pulse Source Pulse Oximeter Pulse Oximetry (%) 95 Oxygen Delivery Method Room Air Intake Visit Reasons: Annual PE Intake Note: Pt is here today for his Annual Physical. Allergies No Known Allergies Allergy (Verified 06/03/24 09:57) Medication List - Last Reconciled 06/03/24 by NELY Chew aspirin 81 mg PO DAILY atorvastatin 80 mg PO DAILY 90 days bismuth subsalicylate (Bismuth) 2 tabs PO QID 28 days dorzolamide-timolol 22.3-6.8 mg/mL 1 drp ophthalmic (eye) BID lisinopril 10 mg PO DAILY metoprolol tartrate 50 mg PO BID 90 days omeprazole 20 mg PO BID 28 days Tobacco use date assessed: 06/03/24 Fall risk assessment: No Falls in past year Last assessed Fall Risk: 06/03/24 Dental Screening Dental Screen Date: 06/03/24 Did you have a dental visit in the last 12 months?: Yes Did you have a dental problem in the last 6 months where you did not have access to dental care?: No Was dental information given to patient?: Patient has dentist HPI Annual PE HPI Details HTN: NOT A PE. Pt brought in values from home, all are stable. Pt denies any COTO, dizziness, SOB, CP, or blurred vision. [facility] Medical History (Updated 06/03/24 @ 08:58 by NELY Chew) Physical exam Pre-op examination Screening PSA (prostate specific antigen) Preoperative cardiovascular examination Barretts esophagus Dyslipidemia Constipation PAF (paroxysmal atrial fibrillation) Hyperlipidemia, unspecified Essential hypertension Atherosclerotic cardiovascular disease Surgical History H/O colonoscopy Status post aortic valve replacement with bioprosthetic valve Status post aorto-coronary artery bypass graft History of coronary artery bypass graft x 2 (~07/29/20) History of cardiac catheterization (~07/03/20) Family History Father No problems noted. Mother No problems noted. Social History Housing: Condominium Patient Tobacco Use Status: Former Tobacco user Years Smoked: 1959 e-Cigarette/Vaping Use: Never Used Second Hand Smoke Exposure: No service: Yes Current occupational status: retired Cognitive needs: No Hearing needs: No Vision needs: Yes Questionnaire PHQ-9 Over the last 2 weeks, how often have you been bothered by any of the following problems? 1. Little interest or pleasure in doing things: not at all 2. Feeling down, depressed, or hopeless: not at all 3. Trouble falling or staying asleep, or sleeping too much: not at all 4. Feeling tired or having little energy: not at all 5. Poor appetite or overeating: not at all 6. Feeling bad about yourself - or that you are a failure or have let yourself or your family down: not at all 7. Trouble concentrating on things, such as reading the newspaper or watching television: not at all 8. Moving or speaking so slowly that other people could have noticed. Or the opposite - being so fidgety or restless that you have been moving around a lot more than usual: not at all 9. Thoughts that you would be better off or of hurting yourself in some way: not at all Total score: 0 Depression Screening Interpretation: Negative Depression Screening Done: Yes 22416 - PHQ-9 Billing: Yes Source: Developed by Drs. Peter Tariq, Indira Ibarra, Francisco Corona and colleagues, with an educational smith from [employer]. Thrive Questionnaire Date Thrive assessed: 12/04/23 AUDIT C Alcohol Use Questionnaire (AUDIT-C) 1. How often do you have a drink containing alcohol?: Never 3. How often do you have six or more drinks on one occasion?: Never Total Score: 0 Score Reviewed/Action Taken: Yes DAVID-7 AMB Questionnaire DAVID-7 Date DAVID - 7 assessed: 12/04/23 Source: Developed by Drs. Peter Tariq, Francisco Mcgovern and colleagues, with an educational smith from [employer]. DAVID-7 Assessment Billing DAVID-7 Assessment Tool: DAVID-7 Assessment 30025 Physical exam (Primary Care) Vital Signs: Last Vital Signs Pulse 60 06/03/24 08:47 BP 138/66 06/03/24 09:12 Pulse Ox 95 06/03/24 08:47 Oxygen Delivery Method Room Air 06/03/24 08:47 BMI result Body Mass Index 30.0 Tobacco/Smoking Status: Tobacco use Status Tobacco use date assessed 06/03/24 06/03/24 08:51 Patient Tobacco Use Status Former Tobacco user 06/03/24 08:51 e-Cigarette/Vaping Use Never Used 06/03/24 08:51 PHQ-9: PHQ-9 Score PHQ-9: Total score 0 06/03/24 09:13 Depression Screening Interpretation: Negative Thrive Assessment: Date of Thrive Assessment Date Thrive assessed 12/04/23 06/03/24 08:51 Resp Effort & Inspection: normal respiratory effort Auscultation: clear to auscultation bilaterally Cardio Rate: regular rate Rhythm: regular rhythm Heart sounds: S1 normal heart sound present, S2 normal heart sound present and Murmur heart sound present (faint) systolic Extrem Right lower extremity: no edema Left lower extremity: no edema Psych Appearance: grossly normal Mental Status: mental status grossly normal Speech and movement: Normal speech and movement present Affect: normal affect Attitude: cooperative Thought process: Normal thought process present Thought content: Normal thought content present Insight: Good insight present (Psych) Judgement: Good judgement present (Psych) Assessment and Plan Assessment & Plan (1) Essential hypertension: Code(s): I10 - Essential (primary) hypertension Plan BPs at home are stable, doing well. Orders: Orders TSH reflex Free T4 Today I10 - Essential (primary) hypertension Complete Blood Count Auto Diff Today I10 - Essential (primary) hypertension Comprehensive [place]. Panel Fast Today I10 - Essential (primary) hypertension UA CC w/rflx Micro + Cult Today I10 - Essential (primary) hypertension Lipid Panel Today I10 - Essential (primary) hypertension Coding Level of Care Code Est Pt Level 3 (96161) Diagnoses Essential hypertension I10 Additional Codes DAVID-7 Assessment Billing - DAVID-7 Assessment Tool: DAVID-7 Assessment 99206 ([id number])
[2024-06-03 09:12] VITALS: BP 138/66
== END 2024-06-03 09:54 | disposition home or self-care (01) ==
PROVIDERS: PCP Nurse Practitioner Family; Visit Provider Nurse Practitioner Family
DX: I10 Essential (primary) hypertension (principal)
CPT/HCPCS: 99213

== ENCOUNTER 2024-09-17 06:01 | Outpatient (REF) | payer MEDICARE, OTHER, SELFPAY ==
[2024-09-17 10:06] LABS: Appearance Urine Clear; Color Urine Yellow; Glucose Urine UA Negative (Negative); Leukocyte Esterase Urine Negative (Negative); Nitrite Urine Negative (Negative); Specific Gravity - Urine 1.015 (1.005-1.025); UMIC TRIGGER UACC YES; Urine Blood Negative (Negative); Urine Ketones Negative (Negative); Urine Protein 30 (1+) mg/dL (Neg-Trace)
[2024-09-17 10:11] LABS: Bacteria Urine None Seen (None Seen); Hyaline Casts Urine 0-2 /LPF (0-2); MANUAL DIFF FLAG NO; RBC Urine 0-2 /HPF (0-2); Squamous Epithelial Cell Urine 0-2 /HPF (0-2); WBC Urine 0-5 /HPF (0-5)
[2024-09-17 10:19] LABS: Basophils Percent Auto 0.4 % (0-2); Eosinophils Percent Auto 0.5 % (0-4); Hematocrit 35.6 % (42.0-52.0); Imm Gran Abs Auto 0.02 X10*3/uL (0.00-0.03); Imm Gran Pct Auto 0.3 % (0.0-0.4); Lymphocytes Absolute Auto 2.7 X10*3/uL (1.2-4.9); Lymphocytes Percent Auto 36.6 % (20-40); Mean Corpuscular HGB Conc 33.7 g/dl (31.0-36.0); Mean Corpuscular Hemoglobin 34.5 pg (27.0-33.0); Mean Corpuscular Volume 102.3 fL (80.0-98.0); Mean Platelet Volume 10.7 fL (9.4-12.4); Monocytes Absolute Auto 0.7 X10*3/uL (0.1-1.2); Monocytes Percent Auto 9.5 % (2-11); Neutrophils Absolute Auto 3.9 x10*3/uL (2.0-8.3); Neutrophils Percent Auto 52.7 % (45-73); Platelet Count 201 X10*3/uL (160-400); Red Blood Count 3.48 X10*6/uL (4.60-5.80); Red Cell Distribution Width 13.1 % (11.0-16.0); White Blood Count 7.3 X10*3/uL (4.8-10.8)
[2024-09-17 10:49] LABS: Alanine Aminotransferase 32 U/L (0-40); Albumin Level 4.3 g/dL (3.5-5.0); Alkaline Phosphatase 84 U/L (39-117); Anion Gap 13 (12-20); Aspartate Amino Transferase 46 U/L (5-37); Bilirubin Total 0.5 mg/dL (0.0-1.0); Blood Urea Nitrogen 30 mg/dL (9-16); Calcium 9.4 mg/dL (8.4-10.2); Carbon Dioxide 26 mmol/L (22-29); Chloride 108 mmol/L (96-108); Cholesterol 120 mg/dL (<200); Estimated Glomerular Filt Rate 53; Glucose Fasting 106 mg/dL (60-99); HDL Cholesterol 40 mg/dL (>40); LDL Cholesterol Calculated 62 mg/dL (<100); Potassium 5.1 mmol/L (3.3-5.1); Sodium 142 mmol/L (135-145); Total Protein 6.8 g/dL (6.5-8.0); Triglycerides 93 mg/dL (<150)
[2024-09-17 11:08] LABS: TSH reflex Free T4 2.66 uIU/mL (0.32-4.0)
== END 2024-09-17 06:02 | disposition home or self-care (01) ==
LOC: HO.HMGCLDS 06:01
PROVIDERS: PCP Nurse Practitioner Family; Visit Provider Nurse Practitioner Family
DX: I10 Essential (primary) hypertension (principal); D64.9 Anemia, unspecified
CPT/HCPCS: 36415; 80053; 80061; 81001; 84443; 85025

== ENCOUNTER 2024-10-08 08:13 | Outpatient (REF) | payer MEDICARE, OTHER, SELFPAY | END 2024-10-08 08:14 | disposition home or self-care (01) | LOC: HO.US 08:13 | PROVIDERS: PCP Nurse Practitioner Family; Visit Provider Nurse Practitioner Family | DX: R74.8 Abnormal levels of other serum enzymes (principal) | CPT/HCPCS: 76705; 76981 ==

== ENCOUNTER → 2024-10-16 07:51 | Outpatient (REF) | payer MEDICARE, OTHER, SELFPAY ==
--- NOTE | 2024-10-16 07:53 | CA_ITS ---
Transthoracic Echocardiogram Patient (Last, First, Middle): Abrahan Odonnell R Gender: Male Date of : 1940 Age: 83 Procedure Date: 10/16/2024 Procedure Type: Transthoracic Echocardiogram Location: OP Height: 177.8 cm Weight: 99.79 kg BSA: 2.17 m2 Heart Rate: bpm BP: 138 / 66 mmHg Circuit Board Drafter: YAA Lopez MD: Jase Hopkins MD Telephony Engineer: Galindo Cedeño MD Symptoms: Z95.3 - Presence of xenogenic heart valve Study Quality: Technically Difficult, contrast ECG Rhythm: Sinus Conclusions: - 1. Normal LV ejection fraction of 60 65% with impaired relaxation filling pattern and elevated filling pressures 2. Severely dilated right ventricular with preserved contractility 3. Severely dilated left atrium 4. Normally function bioprosthetic aortic valve with slightly increased gradient at 13 mm Hg 5. Normal RV systolic pressure 6. No gross pericardial effusion Findings Procedure Information Contrast agent, definity, is being given per protocol without apparent complications. Left Ventricle Normal left ventricular size, thickness, and systolic function. The visually estimated ejection fraction is between 60-65%. Spectral Doppler is indicative of an impaired relaxation filling pattern. Elevated filling pressures. E/E prime ratio is >15, consistent with elevated filling pressures. Right Ventricle Severely increased right ventricular cavity size. There is normal right ventricular systolic function. Atria The left atrium is severely dilated. Interatrial shunt cannot be excluded. The right atrium is moderately dilated. Aortic Valve A bioprosthetic aortic valve is present. The prosthetic aortic valve appears to be functioning normally. The mean gradient is 13 mmHg. Mitral Valve There is mild anterior and moderate posterior mitral leaflet thickening. There is moderate mitral annular calcification. There is mild mitral valve regurgitation. There is no mitral valve stenosis. Pulmonic Valve The pulmonic valve is likely normal. Tricuspid Valve Normal tricuspid valve structure. There is mild tricuspid valve regurgitation. The right ventricular systolic pressure is normal. The right ventricular systolic pressure is 30 mmHg. Normal right atrial pressure. There is no evidence of pulmonary hypertension. Great Vessels The pulmonary artery was not well visualized. There is no dilatation of the ascending aorta measuring 3.60 cm. Small plaque is seen in the sino tubular ridge. Venous The inferior vena cava is dilated and collapses greater than 50% with inspiration. Pericardium/Pleural There is no evidence of pericardial effusion. Prior Study Comparison No significant change compared to prior study dated: 09/22/2020. Measurements 2D Linear Measurements IVSd: 1.06 0.6-0.9/0.6-1.0 cm LVIDd: 4.47 3.9-5.3/4.2-5.9 cm LVIDd Index: 2.06 2.4-3.2/2.2-3.1 cm/m2 LVIDs: 3.02 2.0-3.6 cm LVPWd: 1.00 0.7-1.1 cm LA Diam: 4.80 2.7-3.8/3.0-4.0 cm LAIDs Index: 2.21 1.5-2.3 cm/m2 LV Mass: 196.70 67-162/88-224 g LV Mass Index: 90.64 43-95/49-115 g/m2 LVOT Diam: 2.00 3.0+(-)1.3 cm 2D Systolic Function EF 4C: 60.50 >55% EF 2C: 66.40 >55% EF BiP: 63.40 >55% Mitral Valve MV VTI: 0.55 MV Pk Bennett: 1.55 MV Mn Bennett: 0.96 MV Pk Grad: 10.00 MV Mn Grad: 4.00 MV Pk E: 1.29 MV PK A: 1.41 MV Decel Time: 336.00 E/A: 0.90 E'Lateral: 6.85 E'Medial: 3.70 E/E' Med: 34.90 E/E' Lat: 18.80 PHT: 98.00 MVA PHT: 2.24 MVA Continuity: 1.71 Decel Tompkins: 3.85 Aortic Valve AoV Pk Bennett: 2.65 AoV Mn Bennett: 1.64 AoV VTI: 0.58 AoV Pk Grad: 28.00 Aov Mn Grad: 13.00 TOMMY Cont.VTI: 1.64 LVOT LVOT Pk Bennett: 1.15 LVOT Mn Bennett: 0.78 LVOT VTI: 0.30 LVOT Pk Grad: 5.00 LVOT Mn Grad: 3.00 LVOT Diam: 2.00 LVOT Area: 3.14 Diastolic Function MV Pk E: 1.29 MV Pk A: 1.41 E/A: 0.90 E'Medial: 3.70 E/E' Med: 34.90 E' Laterial: 6.85 E/E' Lat: 18.80 Right Ventricle TAPSE (mm): 17.00 TVS' Bennett: 6.31 Tricuspid Valve TR Pk Bennett: 2.62 TR Pk Grad: 27.00 RA Press: 3.00 RVSP: 30.00 Great Vessels Aorta Sinus of Valsalva: 2.80 2.0-3.5 cm Ao Asc: 3.60 2.1-3.4 cm Updated in Other Vendor System with Status of Final Galindo Cedeño MD electronically signed on 10/17/2024 3:42:42 PM with status of Final
== END ==
LOC: HO.CARD 07:51
PROVIDERS: PCP Nurse Practitioner Family; Visit Provider Internal Medicine
DX: Z95.3 Presence of xenogenic heart valve (principal)
CPT/HCPCS: 93306; Q9957

== ENCOUNTER → 2024-10-16 07:53 | Outpatient (BNV) | payer MEDICARE, OTHER, SELFPAY | PROVIDERS: PCP Nurse Practitioner Family; Visit Provider Internal Medicine Cardiovascular Disease | DX: I34.0 Nonrheumatic mitral (valve) insufficiency (principal); I36.1 Nonrheumatic tricuspid (valve) insufficiency; Z95.3 Presence of xenogenic heart valve | CPT/HCPCS: 93306 ==

== ENCOUNTER 2024-10-29 09:06 | Outpatient (AMB) | payer MEDICARE, OTHER, SELFPAY ==
--- NOTE | 2024-10-29 09:08 | A.OFFVIS_ITS ---
Vital Signs 10/29/24 09:11 Height 5 ft 10 in Weight 211 lb 3.245 oz BMI 30.3 BP 144/64 H Blood Pressure Location Lt brachial Position Sitting Pulse 56 Intake Visit Reasons: 1 yr f/up Non Morse Intercept Technician Required: No Accompanied by: Self / Same As Patient Allergies No Known Allergies Allergy (Verified 06/03/24 09:57) Medication List - Last Reconciled 10/29/24 by Jase Hopkins MD aspirin 81 mg PO DAILY atorvastatin 80 mg PO DAILY 90 days bismuth subsalicylate (Bismuth) 2 tabs PO QID 28 days dorzolamide-timolol 22.3-6.8 mg/mL 1 drp ophthalmic (eye) BID lisinopril 10 mg PO DAILY metoprolol tartrate 50 mg PO BID 90 days omeprazole 20 mg PO BID 28 days HPI Comments Details: Abrahan returns for follow-up. He has undergone coronary artery bypass surgery as well as bioprosthetic aortic valve replacement. Since last seen, absolutely no complaints. He states he feels good. No angina. No other concerns. He states he works out regularly with no issues. [facility] Medical History (Updated 09/17/24 @ 12:47 by Brent Johnson, [facility]) Physical exam Pre-op examination Screening PSA (prostate specific antigen) Preoperative cardiovascular examination Barretts esophagus Dyslipidemia Constipation PAF (paroxysmal atrial fibrillation) Hyperlipidemia, unspecified Essential hypertension Atherosclerotic cardiovascular disease Surgical History H/O colonoscopy Status post aortic valve replacement with bioprosthetic valve Status post aorto-coronary artery bypass graft History of coronary artery bypass graft x 2 (~07/29/20) History of cardiac catheterization (~07/03/20) Family History Father No problems noted. Mother No problems noted. Social History (Updated 10/29/24 @ 09:13 by Mignon Roy CMA) Housing: Condominium Alcohol intake: current Alcohol intake frequency: holidays/special occasions only Patient Tobacco Use Status: Former Tobacco user Years Smoked: 1959 e-Cigarette/Vaping Use: Never Used Second Hand Smoke Exposure: No service: Yes Current occupational status: retired Cognitive needs: No Hearing needs: No Vision needs: Yes Review of Systems Const Denies chills, Denies fatigue, Denies fever(s), Denies weight gain and Denies weight loss ENT Denies dizziness Card Denies chest pain, Denies leg edema, Denies lightheadedness, Denies palpitati ons, Denies dyspnea on exertion, Denies orthopnea and Denies other Resp Denies cough and Denies dyspnea on exertion GI Denies hematochezia and Denies change in stool character Musc Denies abnormal gait, Denies muscle weakness, Denies numbness, Denies radiating pain into limb and Denies tingling Neuro Denies abnormal gait, Denies dizziness, Denies numbness and Denies tingling Endo Denies fatigue and Denies palpitations Physical Exam Vital Signs: Last Vital Signs Pulse 56 10/29/24 09:11 BP 144/64 H 10/29/24 09:11 BMI result Body Mass Index 30.3 Const General: comfortable and no acute distress Orientation/consciousness: patient oriented x3 HEENT Other: Unremarkable Head: Yes normal to inspection Neck Neck: Yes normal visual inspection Chest Chest palpation & inspection: normal inspection of the chest Resp Auscultation: clear to auscultation bilaterally Cardio Palpation: normal PMI Heart sounds: S1 normal heart sound present, S2 normal heart sound present, no gallops, Murmur heart sound present systolic early, I/ and at the right sternal border and no rubs GI Palpation (GI): Soft to palpation Back/Spine/Pelvis Other: unremarkable Skin General skin exam: no rashes or lesions noted Neuro General: patient oriented x3 Extrem General: Yes normal to inspection Psych Mental Status: mental status grossly normal Office Procedures EKG Details: EKG with sinus bradycardia at 56/Min; sinus arrhythmia; no significant ST-T changes; [place] [id number], Complete Assessment & Plan Assessment & Plan (1) Atherosclerotic cardiovascular disease: Code(s): I25.10 - Atherosclerotic heart disease of [place] coronary artery without angina pectoris Category: Medical Plan: Stable and angina free. Continue aspirin, beta-blockers and statins. (2) Status post aorto-coronary artery bypass graft: Code(s): Z95.1 - Presence of aortocoronary bypass graft Category: Surgical Plan: No recent issues. Continue medical therapy as above. (3) Status post aortic valve replacement with bioprosthetic valve: Code(s): Z95.3 - Presence of xenogenic heart valve Category: Surgical Plan: In the recent echocardiogram, normally functioning bioprosthetic aortic valve. Mean gradient across the valve is 13 mm Hg. Overall, normal functioning. Continue infective endocarditis prophylaxis per protocol. He is also on aspirin. There is mention of right ventricular enlargement but upon my review not entirely convincing. Clinically he has got no symptoms either. Hence can monitor. (4) PAF (paroxysmal atrial fibrillation): Code(s): I48.0 - Paroxysmal atrial fibrillation Category: Medical Plan: No evidence of recurrent atrial fibrillation. Off Eliquis. (5) Essential hypertension: Code(s): I10 - Essential (primary) hypertension Category: Medical Plan: Stable. Home blood pressures essentially in the normal range. No changes. Orders: Orders CA echo transthoracic complete 1 Year Z95.3 - Presence of xenogenic heart valve Coding Level of Care Code Est Pt Level 4 (73489) Diagnoses Atherosclerotic cardiovascular disease I25.10 Status post aorto-coronary artery bypass graft Z95.1 Status post aortic valve replacement with bioprosthetic valve Z95.3 PAF (paroxysmal atrial fibrillation) I48.0 Essential hypertension I10 CPT Codes EKG - CPT: 49842-[id number], Complete ([id number])
[2024-10-29 09:11] VITALS: BP 144/64; PULSE 56; BMI 30.3
== END 2024-10-29 09:33 | disposition home or self-care (01) ==
PROVIDERS: PCP Nurse Practitioner Family; Visit Provider Internal Medicine
DX: I25.10 Atherosclerotic heart disease of native coronary artery without angina pectoris (principal); Z95.1 Presence of aortocoronary bypass graft; Z95.3 Presence of xenogenic heart valve; I48.0 Paroxysmal atrial fibrillation; I10 Essential (primary) hypertension
CPT/HCPCS: 93010; 99214

== ENCOUNTER → 2024-10-29 09:06 | Outpatient (BNVA) | payer MEDICARE, OTHER, SELFPAY | PROVIDERS: PCP Nurse Practitioner Family; Visit Provider Internal Medicine | DX: I25.10 Atherosclerotic heart disease of native coronary artery without angina pectoris (principal); I48.0 Paroxysmal atrial fibrillation; I10 Essential (primary) hypertension; Z95.1 Presence of aortocoronary bypass graft; Z95.3 Presence of xenogenic heart valve; Z87.891 Personal history of nicotine dependence | CPT/HCPCS: 93005; 99212 ==

== ENCOUNTER 2024-12-17 06:08 | Outpatient (REF) | payer MEDICARE, OTHER, SELFPAY ==
--- OUTSIDE RECORDS SUMMARY | 2024-12-17 06:10 | XMS_ITS | Clinical Summary ---
Author Organization Unknown Care Team Providers Care Assistant Administrator Name Role Phone ELIZABETH RUIZ, SORAYA Unavailable Unavailable WENDI NOLASCO, JOSE D Unavailable Unavailable Payers Payer Name Policy Type Policy Number Effective Date Expira tion Date MEDICARE.NGS.PDGM [id number] Problems Condition Name Condition Details Condition Category Status Onset Date Resolution Date Last Treatment Date Treating Clinician Comments ENCNTR FOR SURGICAL AFTCR FOLLOWING SURGERY ON THE CIRC SYS Active 08-15 00:00: 00 ATHSCL HEART DISEASE OF [place] CORONARY ARTERY W/O ANG PCTRS Active 07-29 00:00: 00 OLD MYOCARDIAL INFARCTION Active - 00:00: 00 ESSENTIAL (PRIMARY) HYPERTENSION Active - 00:00: 00 PAROXYSMAL ATRIAL FIBRILLATION Active 1- 00:00: 00 HYPERLIPIDEM IA, UNSPECIFIED Active 1- 00:00: 00 ACUTE POSTHEMORRHA GIC ANEMIA Active 07-29 00:00: 00 CONSTIPATION , UNSPECIFIED Active - 00:00: 00 HISTORY OF FALLING Active - 00:00: 00 PRESENCE OF AORTOCORONAR Y BYPASS GRAFT Active 07-29 00:00: 00 PRESENCE OF PROSTHETIC HEART VALVE Active 07-29 00:00: 00 LONG-TERM (CURRENT) USE OF ANTICOAGULAN TS Active 1- 00:00: 00 Allergies, Adverse Reactions, Alerts Allergy Name Allergy Type Status Severity Reaction(s) Onset Date Inactive Date Treating Clinician Comments NO KNOWN ALLERGIES Propensity to adverse reactions Active 08-16 08:51: 38 Medications Ordered Medication Name Filled Medication Name Start Date Stop Date Current Medication? Ordering Clinician Indication Dosage Frequency Signature (SIG) Comments Components travoprost 0.004 % eye drops 8-13 00:00: 00 Yes [id number] Per instruc tions AT BEDTIME DIRECTED Per instructio ns AT BEDTIME DIRECTED (route: ophthalmic (eye)) Med Classific ation: Ophthalmi c Agents dorzolamide 22.3 mg-timolol 6.8 mg/mL eye drops 06-26 00:00: 00 Yes [id number] Per instruc tions TWO TIMES A DAY DIRECTED Per instructio ns TWO TIMES A DAY DIRECTED (route: ophthalmic (eye)) Med Classific ation: Ophthalmi c Agents lisinopril 10 mg tablet 07-21 00:00: 00 08-14 23:59 :00 No [id number] Per instruc tions EVERY DAY Per instructio ns EVERY DAY (route: oral) Med Classific ation: Cardiovas cular Therapy Agents atorvastati n 20 mg tablet 07-21 00:00: 00 Yes [id number] Per instruc tions EVERY DAY Per instructio ns EVERY DAY (route: oral) Med Classific ation: Cardiovas cular Therapy Agents Acetaminoph en Extra Strength 500 mg tablet 08-15 00:00: 00 Yes [id number] 2 tablet 3 TIMES DAILY 2 tablet 3 TIMES DAILY (route: oral) Med Classific ation: Analgesic , Anti-infl ammatory or Antipyret ic amiodarone 200 mg tablet 08-15 00:00: 00 Yes [id number] 1 tablet DAILY 1 tablet DAILY (route: oral) Med Classific ation: Cardiovas cular Therapy Agents apixaban 5 mg tablet 08-15 00:00: 00 Yes [id number] 1 tablet 2 TIMES DAILY 1 tablet 2 TIMES DAILY (route: oral) Med Classific ation: Hematolog ical Agents Aspirin Low Dose 81 mg tablet,berta yed release 08-15 00:00: 00 Yes [id number] 1 tablet DAILY 1 tablet DAILY (route: oral) Med Classific ation: Hematolog ical Agents diltiazem 30 mg tablet 08-15 00:00: 00 Yes [id number] 1 tablet 4 TIMES DAILY 1 tablet 4 TIMES DAILY (route: oral) Med Classific ation: Cardiovas cular Therapy Agents furosemide 40 mg tablet 08-15 00:00: 00 Yes [id number] 1 tablet DAILY 1 tablet DAILY (route: oral) Med Classific ation: Cardiovas cular Therapy Agents metoprolol tartrate 25 mg tablet 08-15 00:00: 00 Yes [id number] 1 tablet 2 TIMES DAILY 1 tablet 2 TIMES DAILY (route: oral) Med Classific ation: Cardiovas cular Therapy Agents Miralax 17 gram/dose oral powder 08-15 00:00: 00 Yes [id number] 17 gram DAILY 17 gram DAILY (route: oral) Med Classific ation: Gastroint estinal Therapy Agents multivitami n capsule 08-15 00:00: 00 Yes [id number] 1 capsule DAILY 1 capsule DAILY (route: oral) Med Classific ation: Electroly te Balance-N utritiona l Products pantoprazol e 40 mg tablet,berta yed release 08-15 00:00: 00 Yes [id number] 1 tablet DAILY 1 tablet DAILY (route: oral) Med Classific ation: Gastroint estinal Therapy Agents potassium chloride ER 20 mEq tablet,exte nded release 08-15 00:00: 00 Yes [id number] 1 tablet DAILY 1 tablet DAILY (route: oral) Med Classific ation: Electroly te Balance-N utritiona l Products Vital Signs Vital Name Observation Time Observation Value Commen ts Temperature 2020-09-08 09:12:08.000 98.5 [degF] Temperature 2020-08-31 09:28:47.000 97.4 [degF] Temperature 2020-08-27 08:33:43.000 98 [degF] Temperature 2020-08-24 09:14:36.000 98.4 [degF] Temperature 2020-08-21 09:46:43.000 98 [degF] Temperature 2020-08-18 07:42:26.000 97.7 [degF] Temperature 2020-08-15 10:33:22.000 96.9 [degF] Pulse 2020-09-08 09:12:54.000 60 /min Pulse 2020-08-31 09:28:38.000 56 /min Pulse 2020-08-27 08:36:11.000 74 /min Pulse 2020-08-24 09:14:51.000 66 /min Pulse 2020-08-21 09:47:46.000 60 /min Pulse 2020-08-18 07:43:21.000 62 /min Pulse 2020-08-15 10:33:32.000 78 /min O2 Saturation (%) 2020-09-08 09:13:13.000 98 % O2 Saturation (%) 2020-08-31 09:30:29.000 98 % O2 Saturation (%) 2020-08-27 08:36:27.000 98 % O2 Saturation (%) 2020-08-24 09:17:13.000 97 % O2 Saturation (%) 2020-08-21 09:48:00.000 96 % Respirations 2020-09-08 09:13:02.000 18 /min Respirations 2020-08-31 09:28:55.000 16 /min Respirations 2020-08-27 08:34:28.000 18 /min Respirations 2020-08-24 09:15:04.000 18 /min Respirations 2020-08-21 09:46:13.000 18 /min Respirations 2020-08-18 07:43:30.000 18 /min Respirations 2020-08-15 10:33:41.000 18 /min Weight (lbs) 2020-09-08 09:23:09.000 200 [lb_av] Weight (lbs) 2020-08-27 08:34:00.000 200 [lb_av] Weight (lbs) 2020-08-15 10:34:13.000 207 [lb_av] Systolic Blood Pressure 2020-09-08 09:10:38.000 122 mm [Hg] Systolic Blood Pressure 2020-08-31 09:30:15.000 104 mm [Hg] Systolic Blood Pressure 2020-08-27 08:38:59.000 132 mm [Hg] Systolic Blood Pressure 2020-08-24 09:15:34.000 124 mm [Hg] Systolic Blood Pressure 2020-08-21 09:46:04.000 126 mm [Hg] Systolic Blood Pressure 2020-08-18 07:41:53.000 120 mm [Hg] Systolic Blood Pressure 2020-08-15 10:33:56.000 112 mm [Hg] Diastolic Blood Pressure 2020-09-08 09:10:38.000 68 mm [Hg] Diastolic Blood Pressure 2020-08-31 09:30:15.000 62 mm [Hg] Diastolic Blood Pressure 2020-08-27 08:38:59.000 70 mm [Hg] Diastolic Blood Pressure 2020-08-24 09:15:34.000 68 mm [Hg] Diastolic Blood Pressure 2020-08-21 09:46:04.000 64 mm [Hg] Diastolic Blood Pressure 2020-08-18 07:41:53.000 66 mm [Hg] Diastolic Blood Pressure 2020-08-15 10:33:56.000 58 mm [Hg] Plan of Treatment Planned Activity Planned Date Details Comments Future Scheduled Test SKILLED NU RSE TO ASSESS, EVALUATE, AND DEVELOP AN INDIVIDUALIZED PLAN OF CARE. AGENCY MAY ACCEPT ORDERS FROM CONSULTING PHYSICIANS SN TO OBSERVE/ASSESS RISK FOR FALLS AND INSTRUCT IN FALL PREVENTION, HOME SAFETY, MEDICATION MANAGEMENT, INFECTION PREVENTION, AND NUTRITION MANAGEMENT. SN MAY PERFORM O2 SATURATION LEVEL ON ADMISSION AND PRN TO ASSESS PATIENT, WITH NOTIFICATION TO THE PHYSICIAN IF SATURATION IS 90% IN THE ABSENCE OF MORE SPECIFIC PARAMETERS FROM THE PHYSICIAN. AGENCY MAY PERFORM A RESUMPTION OF CARE VISIT FOLLOWING ANY HOSPITAL ADMISSION. ALL DISCIPLINES (EXCEPT MELT SUPERVISOR) MAY PROVIDE TELEHEALTH PHONE/REMOTE/VIRTUAL VISITS IN LIEU OF AN IN-PERSON VISIT THAT DOES NOT REQUIRE HANDS ON OR IN PERSON ASSESSMENT WHEN AN IN-PERSON VISIT IS NOT POSSIBLE DUE TO THE PUBLIC HEALTH EMERGENCY RELATED TO THE COVID- PANDEMIC. SKILLED NURSE TO INSTRUCT PATIENT / CAREGIVER ON DISEASE PROCESS, SELF MANAGEMENT, SIGNS AND SYMPTOMS TO REPORT TO SN/PHYSICIAN, RELATED TO: [code = SKILLED NURSE TO ASSESS, EVALUATE, AND DEVELOP AN INDIVIDUALIZED PLAN OF CARE. AGENCY MAY ACCEPT ORDERS FROM CONSULTING PHYSICIANS SN TO OBSERVE/ASSESS RISK FOR FALLS AND INSTRUCT IN FALL PREVENTION, HOME SAFETY, MEDICATION MANAGEMENT, INFECTION PREVENTION, AND NUTRITION MANAGEMENT. SN MAY PERFORM O2 SATURATION LEVEL ON ADMISSION AND PRN TO ASSESS PATIENT, WITH NOTIFICATION TO THE PHYSICIAN IF SATURATION IS 90% IN THE ABSENCE OF MORE SPECIFIC PARAMETERS FROM THE PHYSICIAN. AGENCY MAY PERFORM A RESUMPTION OF CARE VISIT FOLLOWING ANY HOSPITAL ADMISSION. ALL DISCIPLINES (EXCEPT MELT SUPERVISOR) MAY PROVIDE TELEHEALTH PHONE/REMOTE/VIRTUAL VISITS IN LIEU OF AN IN-PERSON VISIT THAT DOES NOT REQUIRE HANDS ON OR IN PERSON ASSESSMENT WHEN AN IN-PERSON VISIT IS NOT POSSIBLE DUE TO THE PUBLIC HEALTH EMERGENCY RELATED TO THE COVID-19 PANDEMIC. SKILLED NURSE TO INSTRUCT PATIENT / CAREGIVER ON DISEASE PROCESS, SELF MANAGEMENT, SIGNS AND SYMPTOMS TO REPORT TO SN/PHYSICIAN, RELATED TO:] Future Scheduled Test MEDICATION MANAGEMENT; SKILLED NURSE TO REVIEW MEDICATIONS FOR INTERACTIONS, EFFECTIVENESS OF DRUG THERAPY, AND SIGNS/SYMPTOMS OF ADVERSE REACTIONS. MAY INSTRUCT AND REINFORCE MEDICATION TEACHING RELATED TO THE USE OF MEDICATIONS, DOSAGE, FREQUENCY, PURPOSE, SIDE EFFECTS, AND TO REPORT COMPLICATIONS. [code = MEDICATION MANAGEMENT; SKILLED NURSE TO REVIEW MEDICATIONS FOR INTERACTIONS, EFFECTIVENESS OF DRUG THERAPY, AND SIGNS/SYMPTOMS OF ADVERSE REACTIONS. MAY INSTRUCT AND REINFORCE MEDICATION TEACHING RELATED TO THE USE OF MEDICATIONS, DOSAGE, FREQUENCY, PURPOSE, SIDE EFFECTS, AND TO REPORT COMPLICATIONS.] Future Scheduled Test RISK FOR H OSPITALIZATION; SKILLED NURSE TO INSTRUCT PATIENT/CAREGIVER ON RISK FOR HOSPITALIZATION, TEACH SIGNS AND SYMPTOMS THAT PUT PATIENT AT RISK, WHEN TO NOTIFY NURSE OF COMPLICATIONS/DECLINE, AND WHEN TO CALL 911. SKILLED NURSE TO INSTRUCT PATIENT/CAREGIVER ON: SIGNS AND SYMPTOMS TO BE ON ALERT FOR EARLY INTERVENTION, PRIOR TO NEEDING EMERGENCY SERVICES CALL [facility] NURSE TO KEEP HARDBOARD GRINDER SYMPTOM REPORT FOR VISIBLE REFERENCE NOTIFY SKILLED NURSE/PHYSICIAN FOR DECLINE IN STATS WHEN AND HOW TO CALL HOME HEALTH AGENCY FACILITATE PHYSICIAN FOLLOW UP APPOINTMENT IDENTIFY SOCIOECONOMIC CONCERNS AND MAKE APPROPRIATE REFERRAL NEEDED IDENTIFY PATIENT GOALS FOR STAYING OUT OF THE HOSPITAL: [code = RISK FOR HOSPITALIZATION; SKILLED NURSE TO INSTRUCT PATIENT/CAREGIVER ON RISK FOR HOSPITALIZATION, TEACH SIGNS AND SYMPTOMS THAT PUT PATIENT AT RISK, WHEN TO NOTIFY NURSE OF COMPLICATIONS/DECLINE, AND WHEN TO CALL 911. SKILLED NURSE TO INSTRUCT PATIENT/CAREGIVER ON: SIGNS AND SYMPTOMS TO BE ON ALERT FOR EARLY INTERVENTION, PRIOR TO NEEDING EMERGENCY SERVICES CALL [facility] NURSE TO KEEP HARDBOARD GRINDER SYMPTOM REPORT FOR VISIBLE REFERENCE NOTIFY SKILLED NURSE/PHYSICIAN FOR DECLINE IN STATS WHEN AND HOW TO CALL HOME HEALTH AGENCY FACILITATE PHYSICIAN FOLLOW UP APPOINTMENT IDENTIFY SOCIOECONOMIC CONCERNS AND MAKE APPROPRIATE REFERRAL NEEDED IDENTIFY PATIENT GOALS FOR STAYING OUT OF THE HOSPITAL:] Future Scheduled Test CARDIOVASC ULAR SYSTEM; SKILLED NURSE TO ASSESS AND TEACH RELATED TO ALTERED CARDIOVASCULAR STATUS TO MINIMIZE COMPLICATIONS AND REDUCE HOSPITALIZATION. [code = CARDIOVASCULAR SYSTEM; SKILLED NURSE TO ASSESS AND TEACH RELATED TO ALTERED CARDIOVASCULAR STATUS TO MINIMIZE COMPLICATIONS AND REDUCE HOSPITALIZATION.] Future Scheduled Test PAIN MANAG EMENT; SKILLED NURSE TO OBSERVE, ASSESS, AND PROVIDE EDUCATION ON PAIN MANAGEMENT TECHNIQUES. [code = PAIN MANAGEMENT; SKILLED NURSE TO OBSERVE, ASSESS, AND PROVIDE EDUCATION ON PAIN MANAGEMENT TECHNIQUES.] Future Scheduled Test CORONARY A RTERY BYPASS GRAFT (CABG); SKILLED NURSE TO ASSESS/TEACH WARNING SIGNS AND SYMPTOMS TO AVOID HOSPITALIZATION. MONITOR SURGICAL INCISION SITES FOR S/S OF INFECTION. [code = CORONARY ARTERY BYPASS GRAFT (CABG); SKILLED NURSE TO ASSESS/TEACH WARNING SIGNS AND SYMPTOMS TO AVOID HOSPITALIZATION. MONITOR SURGICAL INCISION SITES FOR S/S OF INFECTION.] Goal 2020-09-08 Patient Goal - TO GET BACK T O NORMAL Goal Provider Goal - A PLAN OF CARE WILL BE ESTABLISHED THAT MEETS THE PATIENT'S NURSING NEEDS BY 10/13/20 PATIENT WILL DEMONSTRATE OXYGEN SATURATION WITH NORMAL LIMITS OR TO PATIENT'S OPTIMAL LEVEL ESTABLISHED BY THE PHYSICIAN THROUGHOUT CARE Goal Provider Goal - PATIENT/CAREGIVER TO VERBALIZE, AND CONSISTENTLY DEMONSTRATE EFFECTIVE, SAFE MANAGEMENT OF MEDICATION INCLUDING KNOWLEDGE OF EFFECTIVENESS, POTENTIAL SIDE EFFECTS AND DRUG REACTIONS AND WHEN TO CONTACT THE APPROPRIATE CARE PROVIDER. PATIENT/CAREGIVER WILL BE ABLE TO VERBALIZE UNDERSTANDING OF MEDICATION REGIMEN AND ACCURATELY TAKE MEDICATIONS PRESCRIBED WITHOUT ADVERSE EFFECTS BY 10/13/20 Goal Provider Goal - PATIENT/CAREGIVER WILL VERBALIZE UNDERSTANDING OF SIGNS AND SYMPTOMS THAT PUT THE PATIENT AT RISK FOR HOSPITALIZATION, WHEN TO NOTIFY SN OF COMPLICATIONS/DECLINE AND WHEN TO CALL 911. Goal Provider Goal - PATIENT / CAREGIVER WILL VERBALIZE/DEMONSTRATE UNDERSTANDING OF MEASURES TO MANAGE ALTERED CARDIOVASCULAR STATUS BY 10/13/20 Goal Provider Goal - PATIENT / CAREGIVER WILL VERBALIZE / DEMONSTRATE UNDERSTANDING OF PAIN CONTROL MEASURES BY 10/13/20 Goal Provider Goal - PATIENT / CAREGIVER WILL VERBALIZE/DEMONSTRATE AN ABILITY TO ADHERE TO SELF-MANAGEMENT OF CABG TO MINIMIZE COMPLICATIONS AND AVOID HOSPITALIZATION BY END OF EPISODE. Reason for Visit INDEPENDENT IN THE COMMUNITY Encounters Start Date/Time End Date/Time Encounter Type Admission Type Attending [facility] Care Department Encounter ID Discharge Date Discharge Status Discharge Condition Discharge Reason Percent Goals Met 2020-08-15 00:00:00 2020-09-08 00:00:00 Outpatient NEW ADMISSION [facility] [id number] 2020-09-08 00:00:00 DISCHARGE TO HOME OR SELF CARE INDEPENDEN T IN THE COMMUNITY HH OR [facility]- GOALS MET 100.00
[2024-12-17 10:02] LABS: MANUAL DIFF FLAG NO
[2024-12-17 10:10] LABS: Basophils Percent Auto 0.3 % (0-2); Eosinophils Absolute Auto 0.1 X10*3/uL (0.0-0.4); Eosinophils Percent Auto 1.3 % (0-4); Hematocrit 35.3 % (42.0-52.0); Hemoglobin 11.7 g/dl (14.0-18.0); Imm Gran Abs Auto 0.01 X10*3/uL (0.00-0.03); Imm Gran Pct Auto 0.2 % (0.0-0.4); Immature Retic Fraction 15.6 % (2.3-13.4); Mean Corpuscular HGB Conc 33.1 g/dl (31.0-36.0); Mean Corpuscular Hemoglobin 33.4 pg (27.0-33.0); Mean Corpuscular Volume 100.9 fL (80.0-98.0); Mean Platelet Volume 10.5 fL (9.4-12.4); Monocytes Absolute Auto 0.8 X10*3/uL (0.1-1.2); Neutrophils Absolute Auto 3.2 x10*3/uL (2.0-8.3); Neutrophils Percent Auto 52.2 % (45-73); Platelet Count 235 X10*3/uL (160-400); Red Cell Distribution Width 13.5 % (11.0-16.0); Retic HGB Equivalent 32.2 pg (30.0-35.0); Reticulocyte Percent 1.6 % (0.5-1.8); Reticulocytes Absolute 0.055 X10*6/uL (0.026-0.095); White Blood Count 6.1 X10*3/uL (4.8-10.8)
[2024-12-17 10:21] LABS: Appearance Urine Clear; Color Urine Yellow; Glucose Urine UA Negative (Negative); Leukocyte Esterase Urine Small (1+) (Negative); Nitrite Urine Negative (Negative); Specific Gravity - Urine 1.015 (1.005-1.025); UMIC TRIGGER UACC YES; Urine Blood Negative (Negative); Urine Ketones Negative (Negative); Urine Protein 30 (1+) mg/dL (Neg-Trace)
[2024-12-17 10:39] LABS: Bacteria Urine None Seen (None Seen); Hyaline Casts Urine 0-2 /LPF (0-2); RBC Urine 0-2 /HPF (0-2); Squamous Epithelial Cell Urine 0-2 /HPF (0-2); UACC Culture Trigger YES
[2024-12-17 10:57] LABS: Iron 57 mcg/dL (45-160); Percent Iron Saturation 19 % (15-50); Total Iron Binding Capacity 294 mcg/dL (228-428); Unsaturated Iron Binding 237 ug/dL
[2024-12-17 11:12] LABS: Ferritin 135 ng/mL (20-250)
[2024-12-17 11:21] LABS: Folate 16.7 ng/mL (> or = 4.0); Vitamin B12 400 pg/mL (200-900)
[2024-12-18 11:17] LABS: Hematocrit 34.9 % (38.5-50.0); Hemoglobin 11.7 g/dL (13.2-17.1); MCH 33.7 pg (27.0-33.0); MCV 100.6 fL (80.0-100.0); RBC 3.47 Million/uL (4.20-5.80); RDW 12.6 % (11.0-15.0)
== END 2024-12-17 06:09 | disposition home or self-care (01) ==
LOC: HO.HMGCLDS 06:08
PROVIDERS: PCP Nurse Practitioner Family; Visit Provider Nurse Practitioner Family
DX: D64.9 Anemia, unspecified (principal); I10 Essential (primary) hypertension
CPT/HCPCS: 36415; 81001; 81003; 82607; 82728; 82746; 83020; 83540; 85014; 85018; 85025; 85041; 85045; 87086

== ENCOUNTER 2024-12-18 09:10 | Outpatient (AMB) | payer MEDICARE, OTHER, SELFPAY ==
[2024-12-18 09:15] VITALS: BP 124/66; PULSE 60; O2SAT 96; BMI 30.7
--- NOTE | 2024-12-18 09:15 | A.OFFPC_ITS ---
Vital Signs 12/18/24 09:15 Height 5 ft 10 in Weight 214 lb BMI 30.7 BP 124/66 Blood Pressure Location Lt brachial Position Sitting Pulse 60 Pulse Source Pulse Oximeter Pulse Oximetry (%) 96 Intake Visit Reasons: PE Intake Note: pt is here for PE Paraprofessional Aide Required: No Accompanied by: Self / Same As Patient Allergies No Known Allergies Allergy (Verified 12/18/24 09:15) Tobacco use date assessed: 12/18/24 Fall risk assessment: No Falls in past year Last assessed Fall Risk: 12/18/24 Dental Screening Dental Screen Date: 12/18/24 Did you have a dental visit in the last 12 months?: Yes Did you have a dental problem in the last 6 months where you did not have access to dental care?: No Was dental information given to patient?: Patient has dentist HPI PE HPI Details History of Present Illness The patient is an 84-year-old male presenting with a routine physical examination. During the visit, it was noted that the patient has been experiencing cramping sensations in the right lower extremity, described as similar to restless legs. Recent laboratory evaluations for ferritin and iron levels were reported as normal, suggesting a possible electrolyte imbalance. The cramping has been a recent issue. Additionally, the patient has a history of peripheral arterial disease with weak but present bilateral pedal pulses and a large bunion on the right foot. The feet were observed to be somewhat dusky, although capillary refill was good. The presence of bilateral onychomycosis was also noted. No respiratory symptoms were reported, and the lungs were clear upon examination. A faint systolic murmur was detected during auscultation. Health Maintenance - Discontinued colon cancer screening du e to age - Continuation of Prostate-Specific Anti gen (PSA) screening discussed - Immunizations updated and documented f or patient access at pharmacy Social History Review of Systems - Cardiovascular: Reports faint systolic murmur - Musculoskeletal: Reports cramping sens ation in right lower extremity -denies any SOB, CP, COTO, N/V, fevers, ch ills, urinary symptoms, blood n stool, constipation/diarrhea Physical Exam General: Cooperative, healthy appearing, comfortable, no acute distress and well developed Orientation: Patient oriented x3 Limitations: No limitations Head: Normal to inspection Ears: Hearing grossly normal bilaterally Nose: Normal external nose present Face and sinus: Normal facial exam Eyes: Appearance normal, both eyes and all related structures Neck: Normal visual inspection and Yes full ROM Respiratory: Normal respiratory effort and able to speak in complete sentences. Clear to auscultation bilaterally Cardiovascular: Regular rate and rhythm. Faint systolic murmur noted. Normal S1 and S2 GI: Normal to inspection. Soft to palpation and nontender Skin: No rashes or lesions noted Neuro: Patient oriented x3 Extremities: Bilateral pedal pulses were weak but present. Right large bunion noted. Feet were somewhat dusky but good capillary refill. Onychomycosis noted bilaterally Results - Labs: Recent ferritin and iron levels within normal limits Plan - Initiate magnesium supplementation to address potential electrolyte deficiency contributing to lower extremity symptoms. - Encourage increased intake of fluids c ontaining electrolytes, such as sugar- free Gatorade. - Monitor peripheral arterial circulatio n and associated symptoms. - Address right foot bunion and bilatera l onychomycosis appropriately. - Faint systolic murmur to be monitored for any clinical implications. - Continue routine health maintenance, i ncluding PSA monitoring as indicated. Patient was informed and verbally consented to the use of an ambient scribe for clinic note documentation during this visit. Discussion Notes During this visit, I discussed with the patient the possible electrolyte imbalance as a cause for the cramping sensation in the right lower extremity and recommended magnesium supplementation and increased fluid intake. I explained the presence of the faint systolic murmur and that it will continue to be monitored. Onychomycosis was also noted and will be addressed as appropriate. I advised discontinuing colon cancer screening due to age and emphasized the continuation of monitoring PSA levels. Immunizations were documented for the patient's convenience at the pharmacy. No digital rectal examination was performed today by patient preference, and we discussed the plan for follow-up care if symptoms persist or worsen. Patient Instructions - Take magnesium supplements as recommen ded. - Increase hydration with fluids contain ing electrolytes, like sugar-free Gatorade. - Review immunization list provided for updates at the pharmacy. - Schedule a follow-up visit if symptoms do not improve or intensify. - Continue monitoring PSA levels as disc ussed. [facility] Medical History (Updated 12/18/24 @ 10:04 by Brent Johnson, [facility]) Physical exam Screening PSA (prostate specific antigen) Fatty liver Pre-op examination Preoperative cardiovascular examination Barretts esophagus Dyslipidemia Constipation PAF (paroxysmal atrial fibrillation) Hyperlipidemia, unspecified Essential hypertension Atherosclerotic cardiovascular disease Surgical History H/O colonoscopy Status post aortic valve replacement with bioprosthetic valve Status post aorto-coronary artery bypass graft History of coronary artery bypass graft x 2 (~07/29/20) History of cardiac catheterization (~07/03/20) Family History Father No problems noted. Mother No problems noted. [facility] Alcohol intake: current Alcohol intake frequency: holidays/special occasions only Patient Tobacco Use Status: Former Tobacco user Years Smoked: 1959 e-Cigarette/Vaping Use: Never Used Second Hand Smoke Exposure: No service: Yes Current occupational status: retired Cognitive needs: No Hearing needs: No Vision needs: Yes Questionnaire PHQ-9 Over the last 2 weeks, how often have you been bothered by any of the following problems? 1. Little interest or pleasure in doing things: not at all 2. Feeling down, depressed, or hopeless: not at all 3. Trouble falling or staying asleep, or sleeping too much: not at all 4. Feeling tired or having little energy: not at all 5. Poor appetite or overeating: not at all 6. Feeling bad about yourself - or that you are a failure or have let yourself or your family down: not at all 7. Trouble concentrating on things, such as reading the newspaper or watching television: not at all 8. Moving or speaking so slowly that other people could have noticed. Or the opposite - being so fidgety or restless that you have been moving around a lot more than usual: not at all 9. Thoughts that you would be better off or of hurting yourself in some way: not at all Total score: 0 Depression Screening Interpretation: Negative Depression Screening Done: Yes 30388 - PHQ-9 Billing: Yes Source: Developed by Drs. Peter Tariq, Indira Ibarra, Francisco Corona and colleagues, with an educational smith from [employer]. Thrive Questionnaire Date Thrive assessed: 12/18/24 I am a: Patient What is your living situation today?: I have a steady place to live Within the past 12 months, did the food you bought not last and you didn't have the money to get more?: Never true Within the past 12 months, did you worry whether your food would run out before you got money to buy more?: Never true Do you have trouble paying for medicines?: No Do you have trouble getting transportation to medical appointments?: No Do you have trouble paying your heating and electricity bill?: No Do you have trouble taking care of your child, family member or friend?: No Do you have trouble with day-to-day activities such as bathing, preparing meals, shopping, managing finances, etc.?: No Are you currently unemployed and looking for a job?: No Are you interested in more education?: No Please select the resources that you would like help with: None Currently or been in a relationship where the following occur: No concerns reported THRIVE Score: 0 AUDIT C Alcohol Use Questionnaire (AUDIT-C) 1. How often do you have a drink containing alcohol?: 2-3 times a week 2. How many drinks containing alcohol do you have on a typical day when you are drinking?: 1 or 2 3. How often do you have six or more drinks on one occasion?: Monthly Total Score: 5 Score Reviewed/Action Taken: Yes DAVID-7 AMB Questionnaire DAVID-7 Date DAVID - 7 assessed: 12/18/24 Feeling nervous, anxious, or on edge: 0 = Not at all Not being able to stop or control worryin = Not at all Worrying too much about different things: 0 = Not at all Trouble relaxin = Not at all Being so restless that it is hard to sit still: 0 = Not at all Becoming easily annoyed or irritable: 0 = Not at all Feeling afraid as if something awful might happen: 0 = Not at all Total DAVID-7 score (0-4 normal; 5-9 mild; 10-14 moderate; 15-21 severe): 0 Source: Developed by Drs. Peter Tariq, Indira Ibarra, Francisco Corona and colleagues, with an educational smith from [employer]. DAVID-7 Assessment Billing DAVID-7 Assessment Tool: DAVID-7 Assessment 35008 Physical exam (Primary Care) Vital Signs: Last Vital Signs Pulse 60 12/18/24 09:15 BP 124/66 12/18/24 09:15 Pulse Ox 96 12/18/24 09:15 BMI result Body Mass Index 30.7 Tobacco/Smoking Status: Tobacco use Status Tobacco use date assessed 12/18/24 12/18/24 09:16 Patient Tobacco Use Status Former Tobacco user 12/18/24 09:16 e-Cigarette/Vaping Use Never Used 12/18/24 09:16 PHQ-9: PHQ-9 Score PHQ-9: Total score 0 12/18/24 09:16 Depression Screening Interpretation: Negative Thrive Assessment: Date of Thrive Assessment Date Thrive assessed 12/18/24 12/18/24 09:16 Currently or been in a relationship where the following occur: No concerns reported Coding Level of Care Code Est Pt Prev Care >65y(70727) Diagnoses Screening PSA (prostate specific antigen) Z12.5 Physical exam Z00.00 Restless leg G25.81 Leg cramps R25.2 Additional Codes DAVID-7 Assessment Billing - DAVID-7 Assessment Tool: DAVID-7 Assessment 95634 ([id number]) PHQ-9 - 07980 - PHQ-9 Billing: Yes ([id number]) Assessment & Plan Assessment & Plan (1) Screening PSA (prostate specific antigen): Code(s): Z12.5 - Encounter for screening for malignant neoplasm of prostate Category: Medical (2) Physical exam: Code(s): Z00.00 - Encounter for general adult medical examination without abnormal findings Category: Medical (3) Restless leg: Code(s): G25.81 - Restless legs syndrome Category: Medical (4) Leg cramps: Comment: mainly RLE Code(s): R25.2 - Cramp and spasm Category: Medical Plan . Orders: Orders Prostate Specific Antigen Scr Today Z12.5 - Encounter for screening for malignant neoplasm of prostate
== END 2024-12-18 10:07 | disposition home or self-care (01) ==
PROVIDERS: PCP Nurse Practitioner Family; Visit Provider Nurse Practitioner Family
DX: Z00.00 Encounter for general adult medical examination without abnormal findings (principal); Z12.5 Encounter for screening for malignant neoplasm of prostate; G25.81 Restless legs syndrome

== ENCOUNTER → 2024-12-18 09:10 | Outpatient (BNVA) | payer MEDICARE, OTHER, SELFPAY | PROVIDERS: PCP Nurse Practitioner Family; Visit Provider Nurse Practitioner Family | DX: Z00.00 Encounter for general adult medical examination without abnormal findings (principal); G25.81 Restless legs syndrome | CPT/HCPCS: 96127; 99397 ==

== ENCOUNTER 2025-09-15 06:01 | Outpatient (REF) | payer MEDICARE, OTHER, SELFPAY ==
[2025-09-15 10:27] LABS: MANUAL DIFF FLAG NO
[2025-09-15 10:44] LABS: Hematocrit 39.1 % (42.0-52.0); Hemoglobin 12.6 g/dl (14.0-18.0); Imm Gran Abs Auto 0.02 X10*3/uL (0.00-0.03); Imm Gran Pct Auto 0.3 % (0.0-0.4); Lymphocytes Absolute Auto 2.0 X10*3/uL (1.2-4.9); Mean Corpuscular HGB Conc 32.2 g/dl (31.0-36.0); Mean Corpuscular Hemoglobin 32.7 pg (27.0-33.0); Mean Corpuscular Volume 101.6 fL (80.0-98.0); NRBC Abs Auto 0.000 X10*3/uL (0.0-0.012); NRBC Pct Auto 0.0 /100WBC (0.0-0.2); Platelet Count 224 X10*3/uL (160-400); Red Blood Count 3.85 X10*6/uL (4.60-5.80); White Blood Count 7.6 X10*3/uL (4.8-10.8)
== END 2025-09-15 06:02 | disposition home or self-care (01) ==
LOC: HO.HMGCLDS 06:01
PROVIDERS: PCP Nurse Practitioner Family; Visit Provider Nurse Practitioner Family
DX: Z12.5 Encounter for screening for malignant neoplasm of prostate (principal); D64.9 Anemia, unspecified
CPT/HCPCS: 36415; 83615; 84153; 85025

== ENCOUNTER → 2025-10-20 08:06 | Outpatient (REF) | payer MEDICARE, OTHER, SELFPAY ==
--- NOTE | 2025-10-20 08:10 | CA_ITS ---
Transthoracic Echocardiogram Patient (Last, First, Middle): Abrahan Odonnell R Gender: M Date of : 1940 Age: 84 Procedure Date: 10/20/2025 Procedure Type: Transthoracic Echocardiogram Location: OP Height: 177. cm Weight: 90.72 kg BSA: 2.08 m2 Heart Rate: 64 bpm BP: 105 / 65 mmHg Project Design Engineer: AN Referring MD: Jase Hopkins MD Symptoms: Z95.3 - Presence of xenogenic heart valve Study Quality: Technically Difficult w/Contrast ECG Rhythm: Atrial flutter Conclusions: - The left ventricular systolic function is normal. The visually estimated ejection fraction is between 55-60%. - A bioprosthetic aortic valve is present. The prosthetic aortic valve appears to be functioning normally. - There is mild to moderate mitral valve regurgitation. - Mild pulmonary hypertension is present. Findings Procedure Information Contrast agent, definity, is being given per protocol without apparent complications. Left Ventricle Normal left ventricular cavity size. There is mildly increased left ventricular wall thickness. The left ventricular systolic function is normal. The visually estimated ejection fraction is between 55-60%. There is no evidence of regional wall motion abnormalities. Diastolic function is indeterminate on the basis of available data. There is moderate septal asymmetric hypertrophy. Right Ventricle Normal right ventricular cavity size. There is moderately decreased right ventricular systolic function. Atria The left atrium is moderately dilated. The right atrium is normal in size. Aortic Valve A bioprosthetic aortic valve is present. The prosthetic aortic valve appears to be functioning normally. There is no aortic valve regurgitation. Mitral Valve There is moderate mitral annular calcification. There is mild to moderate mitral valve regurgitation. There is no mitral valve stenosis. Pulmonic Valve There is trace pulmonic valve regurgitation. Tricuspid Valve There is trace tricuspid valve regurgitation. Mild pulmonary hypertension is present. Great Vessels The asc aorta is normal in size. Venous The inferior vena cava is mildly dilated and collapses greater than 50% with inspiration. Pericardium/Pleural There is no evidence of pericardial effusion. Prior Study Comparison No significant change compared to prior study dated: 10/16/2024. Measurements 2D Linear Measurements IVSd: 1.48 0.6-0.9/0.6-1.0 cm LVIDd: 3.80 3.9-5.3/4.2-5.9 cm LVIDd Index: 1.83 2.4-3.2/2.2-3.1 cm/m2 LVIDs: 2.67 2.0-3.6 cm LVPWd: 1.23 0.7-1.1 cm LA Diam: 4.20 2.7-3.8/3.0-4.0 cm LAIDs Index: 2.02 1.5-2.3 cm/m2 LV Mass: 229.86 67-162/88-224 g LV Mass Index: 110.51 43-95/49-115 g/m2 LVOT Diam: 1.80 3.0+(-)1.3 cm 2D Systolic Function EF 4C: 44.20 >55% EF 2C: 57.40 >55% EF BiP: 50.20 >55% Mitral Valve MV VTI: 0.49 MV Pk Bennett: 1.85 MV Mn Bennett: 0.83 MV Pk Grad: 14.00 MV Mn Grad: 4.00 MV Pk E: 1.76 MV PK A: 0.38 MV Decel Time: 225.00 E/A: 4.70 E'Lateral: 7.69 E'Medial: 5.84 E/E' Med: 30.10 E/E' Lat: 22.90 PHT: 66.00 MVA PHT: 3.33 MVA Continuity: 1.19 Decel [place]: 7.97 MR Vol - PW Dopp: 12.87 MR VTI: 1.43 MR ERO: 9.00 MR Alias Bennett: 0.39 MR RAD: 0.40 Aortic Valve AoV Pk Bennett: 1.97 AoV Mn Bennett: 1.29 AoV VTI: 0.41 AoV Pk Grad: 16.00 Aov Mn Grad: 8.00 TOMMY Cont.VTI: 1.41 LVOT LVOT Pk Bennett: 1.06 LVOT Mn Bennett: 0.70 LVOT VTI: 0.23 LVOT Pk Grad: 4.00 LVOT Mn Grad: 2.00 LVOT Diam: 1.80 LVOT Area: 2.54 Diastolic Function MV Pk E: 1.76 MV Pk A: 0.38 E/A: 4.70 E'Medial: 5.84 E/E' Med: 30.10 E' Laterial: 7.69 E/E' Lat: 22.90 Right Ventricle TAPSE (mm): 13.70 TVS' Bennett: 4.92 Tricuspid Valve TR Pk Bennett: 2.95 TR Pk Grad: 35.00 RA Press: 8.00 RVSP: 43.00 Great Vessels Aorta Sinus of Valsalva: 2.80 2.0-3.5 cm Ao Asc: 3.50 2.1-3.4 cm Pulmonary Valve PV Pk Bennett: 1.04 Peak PV Grad: 4.00 Updated in Other Vendor System with Status of Final Jase Hopkins MD electronically signed on 10/20/2025 12:59:45 PM with status of Final
== END ==
LOC: HO.CARD 08:06
PROVIDERS: PCP Nurse Practitioner Family; Visit Provider Internal Medicine
DX: Z95.3 Presence of xenogenic heart valve (principal)
CPT/HCPCS: 93306; Q9957

== ENCOUNTER → 2025-10-20 08:10 | Outpatient (BNV) | payer MEDICARE, OTHER, SELFPAY | PROVIDERS: PCP Nurse Practitioner Family; Visit Provider Internal Medicine | DX: I27.20 Pulmonary hypertension, unspecified (principal); I42.2 Other hypertrophic cardiomyopathy; I34.0 Nonrheumatic mitral (valve) insufficiency; Z95.3 Presence of xenogenic heart valve | CPT/HCPCS: 93306 ==